=== PATIENT | female | born 1965 | race Caucasian/White ===

== ENCOUNTER 2023-06-16 17:41 | Inpatient (IN) | payer MEDICARE ==
[2023-06-16 17:58] LABS: Glucose,Whole Blood 296 mg/dL (70-110)
[2023-06-16] MEDS ORDERED: ASPIRIN 81 MG PO STA (18:30)
[2023-06-16] MEDS ORDERED: LABETALOL 5 MG/ML VIAL MDV IVP STA (18:31)
--- NOTE | 2023-06-16 18:35 | ED ---
General Adult HPI - General Chief complaint: Chest Pain Stated complaint: chest pain Time Seen by Provider: 06/16/23 17:58 Source: patient, family, EMS, RN notes reviewed, old records reviewed Mode of arrival: EMS Limitations: no limitations - History of Present Illness Initial comments: Patient is a pleasant 58-year-old female presenting to the emergency department with concerns for chest discomfort. Patient was transferred from [facility]. Patient has been a is comfortable last 2 days. Discomfort is minimal at this time rated 1/10. Patient has minimal associated dyspnea. No fevers. Patient does feel like she may be a little bit dehydrated. Chart reviewed from [facility]. Patient was seen there and transferred secondary to hypertension and chest pain. Patient had reported negative CT angiogram. - Related Data Allergies Allergy/AdvReac Type Severity Reaction Status Date / Time metformin Allergy Unknown Verified 06/16/23 18:02 Sulfa (Sulfonamide Allergy Unknown Verified 06/16/23 18:02 Antibiotics) Review of Systems ROS Statement: Those systems with pertinent positive or pertinent negative responses have been documented in the HPI. ROS Other: All systems not noted in ROS Statement are negative. Constitutional: Denies: fever Eyes: Denies: eye pain ENT: Denies: ear pain Respiratory: Reports: as per HPI, dyspnea. Denies: cough Cardiovascular: Reports: as per HPI, chest pain Endocrine: Denies: fatigue Gastrointestinal: Denies: abdominal pain Genitourinary: Denies: urgency Musculoskeletal: Denies: back pain Past Medical History Past Medical History: Coronary Artery Disease (CAD), Diabetes Mellitus, Hypertension, Myocardial Infarction ([place]) Additional Past Medical History / Comment(s): PAD Additional Past Surgical History / Comment(s): Double bypass, carotid endar terectomy, Past Psychological History: Anxiety, Depression Smoking Status: Current every day smoker Past Alcohol Use History: None Reported Past Drug Use History: Marijuana General Exam Limitations: no limitations General appearance: alert, in no apparent distress Head exam: Present: normocephalic Eye exam: Present: normal appearance Neck exam: Present: normal inspection Respiratory exam: Present: normal lung sounds bilaterally. Absent: chest wall tenderness Cardiovascular Exam: Present: regular rate, normal rhythm Expanded Peripheral pulses: 2+: Radial (R), Radial (L), Dorsalis Pedis (R), Dorsalis Pedis (L) GI/Abdominal exam: Present: soft. Absent: tenderness Extremities exam: Present: normal inspection. Absent: pedal edema, calf tenderness Neurological exam: Present: alert Psychiatric exam: Present: normal affect, normal mood Skin exam: Present: normal color Course Vital Signs 06/16/23 06/16/23 06/16/23 17:48 18:15 18:45 Temperature 99.0 F Pulse Rate 103 H 101 H 108 H Respiratory 20 23 19 Rate Blood Pressure 209/84 184/115 188/96 O2 Sat by Pulse 94 L 97 95 Oximetry EKG Findings - EKG Results: EKG: interpreted by ERMD (Left axis. LVH. Nonspecific ST-T), sinus rhythm EKG shows: tachycardia Medical Decision Making - Medical Decision Making Was pt. sent in by a medical professional or institution (, PA, [employer]ER, urgent care, hospital, or group home...) When possible be specific @ -Patient was sent from [facility] Did you speak to anyone other than the patient for history (EMS, parent, family, police, friend...)? What history was obtained from this source @ -I did speak with transferring physician from [facility] Did you review nursing and triage notes (agree or disagree)? Why? @ -I reviewed and agree with nursing and triage notes Were old charts reviewed (outside hosp., previous admission, EMS record, old EKG, old radiological studies, urgent care reports/EKG's, group home records)? Report findings @ -Chart from [facility] reviewed Differential Diagnosis (chest pain, altered mental status, abdominal pain women, abdominal pain men, vaginal bleeding, weakness, fever, dyspnea, syncope, headache, dizziness, GI bleed, back pain, seizure, CVA, palpatations, mental health, musculoskeletal)? @ -Differential Chest Pain: Stable Angina, Unstable Angina, STEMI, NSTEMI Aortic Dissection, Pneumothorax, Musculoskeletal, Esophageal Spasm GERD, Cholecystitis, Pancreatitis, Zoster, this is not meant to be an all-inclusive list. EKG interpreted by me (3pts min.). @ -As above X-rays interpreted by me (1pt min.). @ -Chest x-ray shows no acute process CT interpreted by me (1pt min.). @ -None done U/S interpreted by me (1pt. min.). @ -None done What testing was considered but not performed or refused? (CT, X-rays, U/S, labs)? Why? @ -None What meds were considered but not given or refused? Why? @ -None Did you discuss the management of the patient with other professionals (professionals i.e. , PA, [employer]EDER, lab, RT, psych nurse, adoption social worker, bridge contractor, teacher, deportation officer, case management director)? Give summary @ -Case was discussed with practitioner Germania Olivas, who will admit covering hospital Was smoking cessation discussed for >3mins.? @ -No Was critical care preformed (if so, how long)? @ -No Were there social determinants of health that impacted care today? How? (Homelessness, low income, unemployed, alcoholism, drug addiction, transportation, low edu. Level, literacy, decrease access to med. care, fci, rehab)? @ -No Was there de-escalation of care discussed even if they declined (Discuss DNR or withdrawal of care, Hospice)? DNR status @ -No What co-morbidities impacted this encounter? (DM, HTN, Smoking, COPD, CAD, Cancer, CVA, ARF, Chemo, Hep., AIDS, mental health diagnosis, sleep apnea, morbid obesity)? @ -None Was patient admitted / discharged? Hospital course, mention meds given and route, prescriptions, significant lab abnormalities, going to OR and other pertinent info. @ -Patient has minimal symptoms at this time. Patient will be admitted with cardiac consult. Admission orders written. Undiagnosed new problem with uncertain prognosis? @ -No Drug Therapy requiring intensive monitoring for toxicity (Heparin, Nitro, Insulin, Cardizem)? @ -No Were any procedures done? @ -No Diagnosis/symptom? @ -Chest pain, hypertension Acute, or Chronic, or Acute on Chronic? @ -Acute, acute Uncomplicated (without systemic symptoms) or Complicated (systemic symptoms)? @ -default Side effects of treatment? @ -No Exacerbation, Progression, or Severe Exacerbation? @ -No Poses a threat to life or bodily function? How? (Chest pain, [place], [place], pneumonia, PE, COPD, DKA, ARF, appy, cholecystitis, CVA, Diverticulitis, Homicidal, Suicidal, threat to staff... and all critical care pts) @ -No - Lab Data Result diagrams: 06/16/23 18:30 Lab Results 06/16/23 06/16/2324 Range/Units 17:56 18:30 18:30 WBC 24.4 H (3.8-10.6) k/uL RBC 5.46 H (3.80-5.40) m/uL Hgb 15.7 (11.4-16.0) gm/dL Hct 47.5 H (34.0-46.0) % MCV 87.1 (80.0-100.0) fL MCH 28.8 (25.0-35.0) pg MCHC 33.1 (31.0-37.0) g/dL RDW 14.8 (11.5-15.5) % Plt Count 273 (150-450) k/uL MPV 8.4 Neutrophils % 83 % Lymphocytes % 10 % Monocytes % 5 % Eosinophils % 0 % Basophils % 0 % Neutrophils # 20.2 H (1.3-7.7) k/uL Lymphocytes # 2.5 (1.0-4.8) k/uL Monocytes # 1.2 H (0-1.0) k/uL Eosinophils # 0.0 (0-0.7) k/uL Basophils # 0.0 (0-0.2) k/uL PT 12.0 (10.0-12.5) sec INR 1.1 (<1.2) APTT 68.3 H (22.0-30.0) sec POC Glucose (mg/dL) 296 H (70-110) mg/dL POC Glu [employer] ID Jeannette Mena Disposition Clinical Impression: Chest pain Disposition: ADMITTED IP TO THIS HOSP Is patient prescribed a controlled substance at d/c from ED?: No Time of Disposition: 18:51
[2023-06-16] MEDS: NITROGLYCERIN OINT 1 INCH/GM PACKET TOPICAL STA ×2 (18:41→18:46)
[2023-06-16] MEDS ORDERED: NALOXONE 0.4 MG/ML 1 ML VIAL IV PRN (18:51)
[2023-06-16] MEDS ORDERED: NITROGLYCERIN SL TABS 0.4 MG TAB SUBLINGUAL PRN (18:53)
[2023-06-16 18:57] LABS: Basophils % (A) 0 %; Eosinophils % (A) 0 %; HCT 47.5 % (34.0-46.0); HGB 15.7 gm/dL (11.4-16.0); Lymphocytes # (A) 2.5 k/uL (1.0-4.8); Lymphocytes % (A) 10 %; MCH 28.8 pg (25.0-35.0); MCHC 33.1 g/dL (31.0-37.0); MCV 87.1 fL (80.0-100.0); Mean Platelet Volume 8.4; Monocytes # (A) 1.2 k/uL (0-1.0); Monocytes % (A) 5 %; Neutrophils # (A) 20.2 k/uL (1.3-7.7); Neutrophils % (A) 83 %; Platelet Count 273 k/uL (150-450); RBC 5.46 m/uL (3.80-5.40); RDW 14.8 % (11.5-15.5); WBC 24.4 k/uL (3.8-10.6)
--- NOTE | 2023-06-16 19:11 | XR ---
EXAMINATION TYPE: XR chest 2V DATE OF EXAM: 06/16/2023 COMPARISON: None INDICATION: Chest pain TECHNIQUE: Frontal and lateral views of the chest are obtained. FINDINGS: The heart size is normal. Sternotomy wires from prior surgery are evident. The pulmonary vasculature is normal. The lungs are clear. IMPRESSION: 1. No acute pulmonary process.
[2023-06-16 19:16] LABS: INR 1.1 (<1.2); Partial Thromboplastin Time 68.3 sec (22.0-30.0)
[2023-06-16] MEDS ORDERED: HEPARIN SODIUM 1,000 UN/ML (10ML VL) IV PRN (19:33)
[2023-06-16] MEDS: SODIUM CHLORIDE 0.9% 1,000 ML IV SCH (19:33)
[2023-06-16] MEDS: HEPARIN SOD,PORK IN 0.45% NACL 25,000 UNIT in 0.45% NACL 1 250ML.BAG IV SCH (19:44)
[2023-06-16 20:44] LABS: ALT 36 U/L (4-34); AST 71 U/L (14-36); African American GFR (CKD) >90 (>60 ml/min/1.73 sqM); Albumin 4.1 g/dL (3.5-5.0); Alkaline Phosphatase 143 U/L (38-126); Anion Gap 16 mmol/L; Blood Urea Nitrogen 24 mg/dL (7-17); Calcium 9.5 mg/dL (8.4-10.2); Carbon Dioxide 23 mmol/L (22-30); Chloride 99 mmol/L (98-107); Glucose 300 mg/dL (74-99); Magnesium 2.1 mg/dL (1.6-2.3); Non-African American GFR(CKD) >90 (>60 ml/min/1.73 sqM); Potassium 3.9 mmol/L (3.5-5.1); Sodium 138 mmol/L (137-145); Total Bilirubin 0.5 mg/dL (0.2-1.3); Total Protein 7.1 g/dL (6.3-8.2)
[2023-06-16] MEDS: METOPROLOL TARTRATE 50 MG TAB PO SCH (20:50)
[2023-06-16] MEDS ORDERED: tiZANidine 4 MG TAB PO PRN (20:53)
[2023-06-16] MEDS ORDERED: HYDROcodone/APAP 10-325MG 1 EACH TAB PO PRN (20:53)
[2023-06-16 21:09] LABS: Appearance,Urine Clear (Clear); Bilirubin,Urine Negative (Negative); Blood,Urine Large (Negative); Color,Urine Light Yellow; Glucose,Urine (UA) 1+ (Negative); Ketones,Urine 1+ (Negative); Leukocyte Esterase,Urine Negative (Negative); Mucus,Urine Few /hpf; Nitrite,Urine Negative (Negative); Protein,Urine 4+ (Negative); RBC,Urine 4 /hpf (0-5); Squamous Epithelial Cell,Urine 1 /hpf (0-4); Urobilinogen,Urine <2.0 mg/dL (<2.0); WBC,Urine 8 /hpf (0-5)
[2023-06-16 21:15] LABS: Specific Gravity,Urine >1.050 (1.001-1.035)
[2023-06-16] MEDS: cloNIDine HCL 0.2 MG TAB PO SCH (21:29)
[2023-06-16] MEDS: glipiZIDE 10 MG TAB PO SCH (21:29)
[2023-06-16] MEDS: PREGABALIN 75 MG CAP PO SCH (21:29)
[2023-06-16] MEDS: traZODone HCL 100 MG TAB PO SCH (21:29)
[2023-06-16] MEDS: PRAVASTATIN SODIUM 40 MG TAB PO SCH (21:29)
[2023-06-16 22:52] LABS: Glucose,Whole Blood 313 mg/dL (70-110)
[2023-06-16] MEDS: QUEtiapine 100 MG TAB PO SCH (22:52)
[2023-06-16] MEDS: INSULIN DETEMIR (LEVEMIR) 100 UNIT/ML SYR SQ SCH (22:52)
[2023-06-16] MEDS: NITROGLYCERIN OINT 1 INCH/GM PACKET TOPICAL SCH (23:48)
[2023-06-16] MEDS: ACETAMINOPHEN TAB 325 MG TAB PO PRN (23:53)
[2023-06-17] MEDS ORDERED: METOCLOPRAMIDE 5 MG/ML 2 ML VIAL IVP STA (02:43)
[2023-06-17] MEDS: NITROGLYCERIN OINT 1 INCH/GM PACKET TOPICAL SCH ×5 (06:44→23:32)
[2023-06-17 06:49] LABS: Glucose,Whole Blood 109 mg/dL (70-110)
[2023-06-17] MEDS: INSULIN ASPART (NovoLOG) 100 UNIT/ML VIAL SQ SCH ×4 (06:49→20:37)
[2023-06-17] MEDS ORDERED: PANTOPRAZOLE 40 MG TABLET PO SCH (07:30)
[2023-06-17 08:26] LABS: Basophils % (A) 0 %; Eosinophils # (A) 0.1 k/uL (0-0.7); Eosinophils % (A) 1 %; HCT 43.7 % (34.0-46.0); HGB 14.7 gm/dL (11.4-16.0); Lymphocytes # (A) 3.8 k/uL (1.0-4.8); Lymphocytes % (A) 24 %; MCH 29.8 pg (25.0-35.0); MCHC 33.6 g/dL (31.0-37.0); MCV 88.7 fL (80.0-100.0); Mean Platelet Volume 7.9; Monocytes # (A) 0.8 k/uL (0-1.0); Monocytes % (A) 5 %; Neutrophils # (A) 10.5 k/uL (1.3-7.7); Neutrophils % (A) 68 %; Platelet Count 196 k/uL (150-450); RBC 4.92 m/uL (3.80-5.40); RDW 14.7 % (11.5-15.5); WBC 15.4 k/uL (3.8-10.6)
[2023-06-17] MEDS: PREGABALIN 75 MG CAP PO SCH ×2 (08:59→20:35)
[2023-06-17] MEDS: allopurinoL 100 MG TAB PO SCH (08:59)
[2023-06-17] MEDS: amLODIPine 10 MG TAB PO SCH (08:59)
[2023-06-17] MEDS: METOPROLOL TARTRATE 50 MG TAB PO SCH ×2 (08:59→23:48)
[2023-06-17] MEDS: ASPIRIN 81 MG PO SCH (08:59)
[2023-06-17] MEDS: cloNIDine HCL 0.2 MG TAB PO SCH ×2 (08:59→20:35)
[2023-06-17] MEDS: EZETIMIBE 10 MG TAB PO SCH (08:59)
[2023-06-17] MEDS: LINAGLIPTIN 5 MG TABLET PO SCH (08:59)
[2023-06-17] MEDS: glipiZIDE 10 MG TAB PO SCH ×2 (08:59→20:36)
[2023-06-17] MEDS: CLOPIDOGREL 75 MG TAB PO SCH (08:59)
[2023-06-17] MEDS: DOCUSATE 100 MG CAP PO SCH (08:59)
[2023-06-17] MEDS ORDERED: ASPIRIN 325 MG TAB PO SCH (09:00)
[2023-06-17] MEDS: LORATADINE 10 MG TAB PO SCH (09:00)
[2023-06-17] MEDS: INSULIN DETEMIR (LEVEMIR) 100 UNIT/ML SYR SQ SCH ×2 (09:00→20:36)
[2023-06-17] MEDS: SODIUM CHLORIDE 0.9% 1,000 ML IV SCH ×2 (09:00→16:52)
[2023-06-17 09:03] LABS: INR 1.1 (<1.2); Partial Thromboplastin Time 89.4 sec (22.0-30.0)
--- NOTE | 2023-06-17 09:05 | P.HPIM ---
History of Present Illness This is a pleasant 58 years old female with multiple medical problems. Presents because of chest pain. Patient was transferred from [facility] for chest pain or dyspnea. Patient also was not taking her medication because she ran out of them. This Morning patient says she came because of chest pain for the last 2-3 days, central nonradiating o'clock sharp with no precipitating or relieving factors. Associated with some cough and white phlegm for the last 2 days. No dyspnea. She vomited 2 days ago but now stopped. No diarrhea no abdominal pain. No urinary complaints, she had some dysuria 2 days ago but none today. No suprapubic tenderness. She just has some dizziness but no headache weakness or numbness. She smokes about 1 pack for 2-3 days and she was counseled to quit and she agrees but she declines nicotine patch. No alcohol or illicit drugs Her PCP is Dr. Robin and Patient takes aspirin and Plavix at home for her legs. Her doctor is Dr. Bola Nick from outside system but she does not know his speciality Patient blood pressure is improved this morning 120/81, was elevated 209/84 on admission. Heart rate was elevated 108, currently 92. Rest of vital signs stable. She has leukocytosis 24,000, down to 15,000, hemoglobin 15.7, platelet count 273. Glucose elevated more than 300. Liver enzymes mildly elevated Records from [facility] reviewed showing urine analysis with protein and blood in urine. D-dimer is elevated 1.7. CTA is negative for pulmonary embolism, no aortic dissection or aneurysm Left thyroid nodule 1.6 cm Right upper lobe cavity 8 mm with few adjacent small cavities. Right adrenal mass 2.8 cm, contents found, no need for follow-up radiologist Chest x-ray showing left lower lobe atelectasis Urine drug screen is negative except for the thc CRP is -0.25 Influenza A and type B, RSV, SARS (coronavirus) are and detected Lactic acid is normal 1.6 Creatinine 1.1 BNP is 212. Review of Systems Review of systems CONSTITUTIONAL: No fever, no malaise, no fatigue. HEENT: No recent visual problems or hearing problems. Denied any sore throat. CARDIOVASCULAR: No orthopnea, PND, no palpitations, no syncope. PULMONARY: No shortness of breath, no cough, no hemoptysis. GASTROINTESTINAL: No diarrhea, no nausea, no vomiting, no abdominal pain. Normoactive bowel sounds. NEUROLOGICAL: No headaches, no weakness, no numbness. HEMATOLOGICAL: Denies any bleeding or petechiae. GENITOURINARY: Denies any burning micturition, frequency, or urgency. MUSCULOSKELETAL/RHEUMATOLOGICAL: Denies any joint pain, swelling, or any muscle pain. ENDOCRINE: Denies any polyuria or polydipsia. Past Medical History Past Medical History: Coronary Artery Disease (CAD), Diabetes Mellitus, Hypertension, Myocardial Infarction ([place]) Additional Past Medical History / Comment(s): PAD Additional Past Surgical History / Comment(s): Double bypass, carotid endarterectomy, Past Psychological History: Anxiety, Depression Smoking Status: Current every day smoker Past Alcohol Use History: None Reported Past Drug Use History: Marijuana Medications and Allergies Home Medications Medication Instructions Recorded Confirmed Type Clopidogrel [Plavix] 75 mg PO DAILY 06/16/23 06/16/23 History Docusate [Colace] 100 mg PO DAILY 06/16/23 06/16/23 History Dulaglutide [Trulicity] 3 mg SQ HAWKINS 06/16/23 06/16/23 History Ezetimibe [Zetia] 10 mg PO DAILY 06/16/23 06/16/23 History HYDROcodone/APAP 10-325MG [[place] 1 tab PO Q6H PRN 06/16/23 06/16/23 History 10-325] Insulin Glargine [Lantus Vial] 55 unit SQ BID 06/16/23 06/16/23 History Loratadine [Claritin] 10 mg PO DAILY 06/16/23 06/16/23 History Metoprolol Tartrate [Lopressor] 50 mg PO BID 06/16/23 06/16/23 History Omeprazole 40 mg PO AC-BRKFST 06/16/23 06/16/23 History Pravastatin Sodium [Pravachol] 40 mg PO HS 06/16/23 06/16/23 History Pregabalin [Lyrica] 75 mg PO BID 06/16/23 06/16/23 History QUEtiapine FUMARATE [SEROquel] 300 mg PO HS 06/16/23 06/16/23 History Rivaroxaban [Xarelto] 2.5 mg PO BID 06/16/23 06/16/23 History Vortioxetine Hydrobromide 20 mg PO DAILY 06/16/23 06/16/23 History [Trintellix] allopurinoL 100 mg PO DAILY 06/16/23 06/16/23 History amLODIPine [Norvasc] 10 mg PO DAILY 06/16/23 06/16/23 History cloNIDine HCL [Catapres] 0.2 mg PO BID 06/16/23 06/16/23 History clonazePAM [KlonoPIN] 0.5 mg PO TID PRN 06/16/23 06/16/23 History glipiZIDE [Glucotrol] 10 mg PO BID 06/16/23 06/16/23 History hydroCHLOROthiazide 12.5 mg PO DAILY 06/16/23 06/16/23 History sitaGLIPtin [Januvia] 100 mg PO DAILY 06/16/23 06/16/23 History tiZANidine HCL [Zanaflex] 2 mg PO TID PRN 06/16/23 06/16/23 History traZODone HCL 150 mg PO HS 06/16/23 06/16/23 History Allergies Allergy/AdvReac Type Severity Reaction Status Date / Time metformin Allergy Unknown Verified 06/16/23 19:23 Sulfa (Sulfonamide Allergy Unknown Verified 06/16/23 19:23 Antibiotics) Physical Exam Vitals: Vital Signs Temp Pulse Pulse Resp BP BP Pulse Ox 06/17/23 02:00 81 16 120/81 94 L 06/16/23 21:26 98.6 F 81 20 196/112 93 L 06/16/23 20:45 92 16 204/96 95 06/16/23 20:00 75 18 06/16/23 19:31 85 16 201/106 98 06/16/23 18:45 108 H 19 188/96 95 06/16/23 18:15 101 H 23 184/115 97 06/16/23 17:48 99.0 F 103 H 20 209/84 94 L Intake and Output 06/16/23 06/17/23 06/17/23 22:59 06:59 14:59 Intake Total 540 63.781 Balance 540 63.781 Intake: Intake, IV Titration 63.781 Amount Heparin Sod,Pork in 0.45% 63.781 NaCl 25,000 unit In 0.45 % NaCl 1 250ml.bag @ 12 UNITS/KG/HR 9.449 mls/hr IV .Q24H [facility] Rx#: [id number] Oral 540 Other: Voiding Method Toilet Toilet # Voids 1 Weight 78.744 kg GENERAL: The patient is alert and oriented x3, not in any acute distress. Well developed, well nourished. HEENT: Pupils are round and equally reacting to light. EOMI. No scleral icterus. No conjunctival pallor. Normocephalic, atraumatic. No pharyngeal erythema. No thyromegaly. CARDIOVASCULAR: S1 and S2 present. No murmurs, rubs, or gallops. PULMONARY: Chest is clear to auscultation, no wheezing , no crackles. ABDOMEN: Soft, nontender, nondistended, normoactive bowel sounds. No palpable organomegaly. MUSCULOSKELETAL: No joint swelling or deformity. EXTREMITIES: No cyanosis, clubbing, or pedal edema. NEUROLOGICAL: Gross neurological examination did not reveal any focal deficits. SKIN: No rashes. no petechiae. Results CBC & Chem 7: 06/17/23 07:39 06/16/23 18:30 Labs: Abnormal Lab Results - Last 24 Hours (Table) 06/16/23 06/16/23 06/16/23 Range/Units 17:56 18:30 18:30 WBC 24.4 H (3.8-10.6) k/uL RBC 5.46 H (3.80-5.40) m/uL Hct 47.5 H (34.0-46.0) % Neutrophils # 20.2 H (1.3-7.7) k/uL Monocytes # 1.2 H (0-1.0) k/uL APTT 68.3 H (22.0-30.0) sec BUN (7-17) mg/dL Glucose (74-99) mg/dL POC Glucose (mg/dL) 296 H (70-110) mg/dL AST (14-36) U/L ALT (4-34) U/L Alkaline Phosphatase (38-126) U/L Troponin I (0.000-0.034) ng/mL Ur Specific [place] (1.001-1.035) Urine Protein (Negative) Urine Glucose (UA) (Negative) Urine Ketones (Negative) Urine Blood (Negative) Urine WBC (0-5) /hpf Urine Mucus (None) /hpf 06/16/23 06/16/23 06/16/23 Range/Units 18:30 18:30 19:33 WBC (3.8-10.6) k/uL RBC (3.80-5.40) m/uL Hct (34.0-46.0) % Neutrophils # (1.3-7.7) k/uL Monocytes # (0-1.0) k/uL APTT (22.0-30.0) sec BUN 24 H (7-17) mg/dL Glucose 300 H (74-99) mg/dL POC Glucose (mg/dL) (70-110) mg/dL AST 71 H (14-36) U/L ALT 36 H (4-34) U/L Alkaline Phosphatase 143 H (38-126) U/L Troponin I 0.097 H* (0.000-0.034) ng/mL Ur Specific [place] >1.050 H (1.001-1.035) Urine Protein 4+ H (Negative) Urine Glucose (UA) 1+ H (Negative) Urine Ketones 1+ H (Negative) Urine Blood Large H (Negative) Urine WBC 8 H (0-5) /hpf Urine Mucus Few H (None) /hpf 06/16/23 06/16/23 06/17/23 Range/Units 21:02 22:51 01:18 WBC (3.8-10.6) k/uL RBC (3.80-5.40) m/uL Hct (34.0-46.0) % Neutrophils # (1.3-7.7) k/uL Monocytes # (0-1.0) k/uL APTT (22.0-30.0) sec BUN (7-17) mg/dL Glucose (74-99) mg/dL POC Glucose (mg/dL) 313 H (70-110) mg/dL AST (14-36) U/L ALT (4-34) U/L Alkaline Phosphatase (38-126) U/L Troponin I 0.094 H* 0.088 H* (0.000-0.034) ng/mL Ur Specific [place] (1.001-1.035) Urine Protein (Negative) Urine Glucose (UA) (Negative) Urine Ketones (Negative) Urine Blood (Negative) Urine WBC (0-5) /hpf Urine Mucus (None) /hpf 06/17/23 06/17/23 Range/Units 01:18 07:39 WBC 15.4 H (3.8-10.6) k/uL RBC (3.80-5.40) m/uL Hct (34.0-46.0) % Neutrophils # 10.5 H (1.3-7.7) k/uL Monocytes # (0-1.0) k/uL APTT 33.4 H (22.0-30.0) sec BUN (7-17) mg/dL Glucose (74-99) mg/dL POC Glucose (mg/dL) (70-110) mg/dL AST (14-36) U/L ALT (4-34) U/L Alkaline Phosphatase (38-126) U/L Troponin I (0.000-0.034) ng/mL Ur Specific [place] (1.001-1.035) Urine Protein (Negative) Urine Glucose (UA) (Negative) Urine Ketones (Negative) Urine Blood (Negative) Urine WBC (0-5) /hpf Urine Mucus (None) /hpf Assessment and Plan Assessment: Chest pain, rule out cardiac causes Hypertension, controlled on admission Nonadherence to medication Nicotine dependence Obesity with BMI of 29.8 Diabetes mellitus, with hyperglycemia Hyperlipidemia History of depression, currently not active issue and she denies suicidal ideation or homicidal ideation Left thyroid nodule 1.6 cm, follow-up with pheresis specialist as an outpatient Dr. Martinez in 1-2 weeks after discharge, risks including but not limited to cancer explained, patient & son agree 8 mm right upper lung cavity,Common follow-up with torsion spring coiling machine setter as an outpatient, risks including but not limited to cancer explained, patient & son mr.Gerard gamboa Plan: Continue with heparin drip Continue with aspirin and Plavix Cardiology consult Continue gentle hydration Follow-up echocardiogram Get blood culture with WBC monitoring. Check procalcitonin Labs and medication were reviewed.. Continue same treatment. Continue with symptomatic treatment. Resume home medication. Monitor lytes and vitals. DVT and GI prophylaxis. Further recommendations depends on the clinical course of the patient DVT prophylaxis: heparin GI Prophylaxis: Ppi Prognosis is guarded
[2023-06-17] MEDS: VORTIOXETINE HYDROBROMIDE 20 MG TABLET PO SCH (09:13)
[2023-06-17] MEDS: hydroCHLOROthiazide 12.5 MG CAP PO SCH (09:30)
[2023-06-17 10:04] LABS: ALT 32 U/L (4-34); AST 68 U/L (14-36); African American GFR (CKD) >90 (>60 ml/min/1.73 sqM); Albumin 3.6 g/dL (3.5-5.0); Alkaline Phosphatase 114 U/L (38-126); Anion Gap 10 mmol/L; Bilirubin, Delta 0.3 mg/dL (0.0-0.2); Bilirubin,Unconjugated 0.2 mg/dL (0.0-1.1); Blood Urea Nitrogen 23 mg/dL (7-17); Calcium 9.2 mg/dL (8.4-10.2); Carbon Dioxide 29 mmol/L (22-30); Chloride 100 mmol/L (98-107); Glucose 106 mg/dL (74-99); Non-African American GFR(CKD) >90 (>60 ml/min/1.73 sqM); Sodium 139 mmol/L (137-145); Total Bilirubin 0.5 mg/dL (0.2-1.3); Total Protein 6.3 g/dL (6.3-8.2)
--- NOTE | 2023-06-17 11:05 | P.CRDCN ---
History of Present Illness History of present illness: HISTORY OF PRESENT ILLNESS: This is a 58-year-old female with a past medical history significant for coronary artery disease with previous 2 vessel CABG in 2017 performed in [place], hypertension, hyperlipidemia, diabetes, nicotine dependence, and marijuana use. Patient states that she recently moved to [place] in June and has not established yet with a chemical maker. We have been asked to see the patient in consultation for elevated troponins. Patient examined at the bedside in the emergency room. The patient states on Monday she started having iss ues with nausea and vomiting that progressed for the past few days. She states yesterday she began to have pain in the middle of her chest that felt like a pressure type sensation. She denied any radiation of the pain. Denied any shortness of breath. The patient states she did not take anything for the pain and it went away on its own. She denies chest pain or pressure at the time of examination. The patient's blood pressure was significant elevated upon arrival to the hospital with a systolic greater than 200. The patient states she ran out of her medications and has not been taking them for at least a week. Patient's blood pressure is improved this morning with a reading of 135/88. Patient was found to have mildly elevated troponins and she was started on IV heparin. * EKG reveals sinus mechanism with nonspecific ST-T wave changes. Evidence of LVH. No previous EKG available for comparison. * Chest xray negative for acute process * Laboratory data: WBC 0.097. 0.094. 0.088. WBC 24.4. Repeat 15.4. REVIEW OF SYSTEMS: At the time of my exam: CONSTITUTIONAL: Denies fever or chills. HEENT: Denies blurred vision, vision changes, or eye pain. Denies hemoptysis CARDIOVASCULAR: Denies chest pain. Denies orthopnea. Denies PND. Denies palpitat ions RESPIRATORY: Denies shortness of breath. GASTROINTESTINAL: Denies abdominal pain. Denies nausea or vomiting. HEMATOLOGIC: Denies bleeding disorders. GENITOURINARY: Denies any blood in urine. SKIN: Denies pruitis. Denies rash. PHYSICAL EXAM: VITAL SIGNS: Reviewed. GENERAL: Well-developed in no acute distress. HEENT: Head is normocephalic. Pupils are equal, round. Sclerae anicteric. Mucous membranes of the mouth are moist. Neck supple. No JVD or thyromegaly LUNGS: Respirations even and unlabored. Lungs essentially clear to auscultation bilaterally. HEART: Regular rate and rhythm. S1 and S2 heard. ABDOMEN: Soft. Nondistended. Nontender. EXTREMITIES: Normal range of motion. No clubbing or cyanosis. Peripheral pulses intact. No lower extremity edema NEUROLOGIC: Awake and alert. Oriented x 3. ASSESSMENT: Nausea and vomiting Leukocytosis Hypertensive emergency, improved Chest pain with elevated troponins, flat, may be secondary to uncontrolled hypertension, cannot rule out underlying NSTEMI Coronary artery disease with previous 2 vessel CABG, 2017 History of hypertension History of hyperlipidemia Diabetes Nicotine dependence Marijuana use Medication noncompliance, patient states she ran out of her medications PLAN: Obtain 2-D echo to assess cardiac structure and function Continue IV heparin Resume home cardiac medications Continue to monitor blood pressure Patient will require cardiac catheterization to be completed by Dr. Martin. Timing to be determined. Monday versus Monday. Further recommendations pending patient's course Nurse practitioner note has been reviewed by physician. Signing provider agrees with the documented findings, assessment, and plan of care. Past Medical History Past Medical History: Coronary Artery Disease (CAD), Diabetes Mellitus, Hypertension, Myocardial Infarction ([place]) Additional Past Medical History / Comment(s): PAD Additional Past Surgical History / Comment(s): Double bypass, carotid endarterectomy, Past Psychological History: Anxiety, Depression Smoking Status: Current every day smoker Past Alcohol Use History: None Reported Past Drug Use History: Marijuana Medications and Allergies Home Medications Medication Instructions Recorded Confirmed Type Clopidogrel [Plavix] 75 mg PO DAILY 06/16/23 06/16/23 History Docusate [Colace] 100 mg PO DAILY 06/16/23 06/16/23 History Dulaglutide [Trulicity] 3 mg SQ HAWKINS 06/16/23 06/16/23 History Ezetimibe [Zetia] 10 mg PO DAILY 06/16/23 06/16/23 History HYDROcodone/APAP 10-325MG [[place] 1 tab PO Q6H PRN 06/16/23 06/16/23 History 10-325] Insulin Glargine [Lantus Vial] 55 unit SQ BID 06/16/23 06/16/23 History Loratadine [Claritin] 10 mg PO DAILY 06/16/23 06/16/23 History Metoprolol Tartrate [Lopressor] 50 mg PO BID 06/16/23 06/16/23 History Omeprazole 40 mg PO AC-BRKFST 06/16/23 06/16/23 History Pravastatin Sodium [Pravachol] 40 mg PO HS 06/16/23 06/16/23 History Pregabalin [Lyrica] 75 mg PO BID 06/16/23 06/16/23 History QUEtiapine FUMARATE [SEROquel] 300 mg PO HS 06/16/23 06/16/23 History Rivaroxaban [Xarelto] 2.5 mg PO BID 06/16/23 06/16/23 History Vortioxetine Hydrobromide 20 mg PO DAILY 06/16/23 06/16/23 History [Trintellix] allopurinoL 100 mg PO DAILY 06/16/23 06/16/23 History amLODIPine [Norvasc] 10 mg PO DAILY 06/16/23 06/16/23 History cloNIDine HCL [Catapres] 0.2 mg PO BID 06/16/23 06/16/23 History clonazePAM [KlonoPIN] 0.5 mg PO TID PRN 06/16/23 06/16/23 History glipiZIDE [Glucotrol] 10 mg PO BID 06/16/23 06/16/23 History hydroCHLOROthiazide 12.5 mg PO DAILY 06/16/23 06/16/23 History sitaGLIPtin [Januvia] 100 mg PO DAILY 06/16/23 06/16/23 History tiZANidine HCL [Zanaflex] 2 mg PO TID PRN 06/16/23 06/16/23 History traZODone HCL 150 mg PO HS 06/16/23 06/16/23 History Allergies Allergy/AdvReac Type Severity Reaction Status Date / Time metformin Allergy Unknown Verified 06/16/23 19:23 Sulfa (Sulfonamide Allergy Unknown Verified 06/16/23 19:23 Antibiotics) Physical Exam Vitals: Vital Signs Temp Pulse Pulse Resp BP BP Pulse Ox 06/17/23 02:00 81 16 120/81 94 L 06/16/23 21:26 98.6 F 81 20 196/112 93 L 06/16/23 20:45 92 16 204/96 95 06/16/23 20:00 75 18 06/16/23 19:31 85 16 201/106 98 01/12/24 18:45 108 H 19 188/96 95 06/16/23 18:15 101 H 23 184/115 97 06/16/23 17:48 99.0 F 103 H 20 209/84 94 L Intake and Output 06/16/23 06/17/23 06/17/23 22:59 06:59 14:59 Intake Total 540 63.781 Balance 540 63.781 Intake: Intake, IV Titration 63.781 Amount Heparin Sod,Pork in 0.45% 63.781 NaCl 25,000 unit In 0.45 % NaCl 1 250ml.bag @ 12 UNITS/KG/HR 9.449 mls/hr IV .Q24H [facility] Rx#: [id number] Oral 540 Other: Voiding Method Toilet Toilet # Voids 1 Weight 78.744 kg Results 06/17/23 07:39 06/17/23 07:39 Cardiac Enzymes 06/16/23 06/16/23 06/16/23 Range/Units 18:30 18:30 21:02 AST 71 H (14-36) U/L Troponin I 0.097 H* 0.094 H* (0.000-0.034) ng/mL 06/17/23 Range/Units 01:18 AST (14-36) U/L Troponin I 0.088 H* (0.000-0.034) ng/mL Coagulation 06/16/23 06/17/23 Range/Units 18:30 01:18 PT 12.0 (10.0-12.5) sec APTT 68.3 H 33.4 H (22.0-30.0) sec CBC 06/16/23 Range/Units 18:30 WBC 24.4 H (3.8-10.6) k/uL RBC 5.46 H (3.80-5.40) m/uL Hgb 15.7 (11.4-16.0) gm/dL Hct 47.5 H (34.0-46.0) % Plt Count 273 (150-450) k/uL Comprehensive Metabolic Panel 06/16/23 Range/Units 18:30 Sodium 138 (137-145) mmol/L Potassium 3.9 (3.5-5.1) mmol/L Chloride 99 (98-107) mmol/L Carbon Dioxide 23 (22-30) mmol/L BUN 24 H (7-17) mg/dL Creatinine 0.56 (0.52-1.04) mg/dL Glucose 300 H (74-99) mg/dL Calcium 9.5 (8.4-10.2) mg/dL AST 71 H (14-36) U/L ALT 36 H (4-34) U/L Alkaline Phosphatase 143 H (38-126) U/L Total Protein 7.1 (6.3-8.2) g/dL Albumin 4.1 (3.5-5.0) g/dL Current Medications Generic Name Dose Route Start Last Admin Trade Name Freq PRN Reason Stop Dose Admin Acetaminophen 650 mg 06/16/23 18:51 06/16/23 23:53 Acetaminophen Tab 325 Mg Tab PO 650 mg Q6HR PRN Administration Mild Pain or Fever > 100.5 Hydrocodone Bitart/Acetaminophen 1 each 06/16/23 20:53 Hydrocodone/Apap 10-325mg 1 Each Tab PO Q6H PRN Severe Pain (Scale 7 to 10) Allopurinol 100 mg 06/17/23 09:00 Allopurinol 100 Mg Tab PO DAILY [facility] Amlodipine Besylate 10 mg 06/17/23 09:00 Amlodipine 10 Mg Tab PO DAILY [facility] Aspirin 325 mg 06/17/23 09:00 Aspirin 325 Mg Tab PO DAILY [facility] Clonazepam 0.5 mg 06/16/23 20:53 Clonazepam 0.5 Mg Tab PO TID PRN Anxiety Clonidine 0.2 mg 06/16/23 21:00 06/16/23 21:29 Clonidine Hcl 0.2 Mg Tab PO 0.2 mg BID JAMIE Administration Clopidogrel Bisulfate 75 mg 06/17/23 09:00 Clopidogrel 75 Mg Tab PO DAILY [facility] Docusate Sodium 100 mg 06/17/23 09:00 Docusate 100 Mg Cap PO DAILY [facility] Ezetimibe 10 mg 06/17/23 09:00 Ezetimibe 10 Mg Tab PO DAILY [facility] Glipizide 10 mg 06/16/23 21:00 06/16/23 21:29 Glipizide 10 Mg Tab PO 10 mg BID [facility] Administration Heparin Sodium (Porcine) 0 unit 06/16/23 19:33 06/17/23 02:36 Heparin Sodium 1,000 Un/Ml (10ml Vl) IV 4,000 unit PER PROTOCOL PRN Administration Low PTT Protocol Hydrochlorothiazide 12.5 mg 06/17/23 09:00 Hydrochlorothiazide 12.5 Mg Cap PO DAILY [facility] Sodium Chloride 1,000 mls @ 75 mls/hr 06/16/23 19:00 06/16/23 19:33 Saline 0.9% IV 75 mls/hr .[id number] JAMIE Administration Heparin Sodium/Sodium Chloride 250 mls @ 9.449 mls/hr 06/16/23 19:45 06/17/23 02:29 25,000 unit/ Sodium Chloride IV 15 units/kg/hr .Q24H [facility] 11.812 mls/hr Titration Protocol 12 UNITS/KG/HR Insulin Aspart 0 unit 06/17/23 07:30 06/17/23 06:49 Insulin Aspart (Novolog) 100 Unit/Ml Vial SQ Not Given ACHS [facility] Protocol Insulin Detemir 55 unit 06/16/23 21:00 06/16/23 22:52 Insulin Detemir (Levemir) 100 Unit/Ml Syr SQ 55 unit BID@0700,2100 [facility] Administration Linagliptin 5 mg 06/17/23 09:00 Linagliptin 5 Mg Tablet PO DAILY [facility] Loratadine 10 mg 06/17/23 09:00 Loratadine 10 Mg Tab PO DAILY [facility] Metoprolol Tartrate 50 mg 06/16/23 21:00 06/16/23 20:50 Metoprolol Tartrate 50 Mg Tab PO 50 mg BID [facility] Administration Naloxone HCl 0.2 mg 06/16/23 18:51 Naloxone 0.4 Mg/Ml 1 Ml Vial IV Q2M PRN Opioid Reversal Nitroglycerin 0.4 mg 06/16/23 18:53 06/16/23 23:53 Nitroglycerin Sl Tabs 0.4 Mg Tab SUBLINGUAL 0.4 mg Q5M PRN Administration Chest Pain Nitroglycerin 1 inch 06/17/23 00:00 06/17/23 06:44 Nitroglycerin Oint 1 Inch/Gm Packet TOPICAL Not Given Q6HR [facility] Patient's Own ( 3 mg 06/18/23 09:00 Dulaglutide [ SQ Trulicity] 3 Mg/0.5 HAWKINS JAMIE Ml Each) Pantoprazole Sodium 40 mg 06/17/23 07:30 Pantoprazole 40 Mg Tablet PO AC-BRKFST [facility] Pravastatin Sodium 40 mg 06/16/23 21:00 06/16/23 21:29 Pravastatin Sodium 40 Mg Tab PO 40 mg HS [facility] Administration Pregabalin 75 mg 06/16/23 21:00 06/16/23 21:29 Pregabalin 75 Mg Cap PO 75 mg BID [facility] Administration Quetiapine Fumarate 300 mg 06/16/23 21:00 06/16/23 22:52 Quetiapine 100 Mg Tab PO 300 mg HS [facility] Administration Tizanidine HCl 2 mg 06/16/23 20:53 Tizanidine 4 Mg Tab PO TID PRN Neck & Shoulder Spasms Trazodone HCl 150 mg 06/16/23 21:00 06/16/23 21:29 Trazodone Hcl 100 Mg Tab PO 150 mg HS [facility] Administration Vortioxetine 20 mg 06/17/23 09:00 Vortioxetine Hydrobromide 20 Mg Tablet PO DAILY [facility] Intake and Output 06/16/23 06/17/23 06/17/23 22:59 06:59 14:59 Intake Total 540 63.781 Balance 540 63.781 Intake: Intake, IV Titration 63.781 Amount Heparin Sod,Pork in 0.45% 63.781 NaCl 25,000 unit In 0.45 % NaCl 1 250ml.bag @ 12 UNITS/KG/HR 9.449 mls/hr IV .Q24H [facility] Rx#: [id number] Oral 540 Other: Voiding Method Toilet Toilet # Voids 1 Weight 78.744 kg 06/16/23 18:30 06/16/23 18:30
[2023-06-17 11:12] LABS: Glucose,Whole Blood 242 mg/dL (70-110)
[2023-06-17] MEDS ORDERED: INFLUENZA VACC (6 MOS-64 YRS) 60 MCG/0.5 ML SYRINGE IM ONE (11:16)
[2023-06-17] MEDS ORDERED: PNEUMOCOCCAL VACC-PREVNAR-20 0.5 ML SYR IM ONE (11:16)
[2023-06-17] MEDS ORDERED: Magnesium Replacement Protocol 1 EACH MISC MISCELLANE PRN (11:50)
[2023-06-17] MEDS ORDERED: Potassium Replacement Protocol 1 EACH MISC MISCELLANE PRN (11:50)
--- NOTE | 2023-06-17 12:46 | XR ---
EXAMINATION TYPE: XR KUB DATE OF EXAM: 06/17/2023 COMPARISON: None HISTORY: Pain TECHNIQUE: AP upright abdomen FINDINGS: Normal colonic bowel gas is present. No free air is present. No air-fluid levels or differe ntial air-fluid levels are present. Left iliac stent is present. Some bilateral proximal superficial femoral artery stents are present. Psoas margins are normal. No organomegaly is evident. No suspicious calcifications. IMPRESSION: 1. No suspicious acute changes upright abdomen
[2023-06-17] MEDS: POTASSIUM CHLORIDE ER 20 MEQ TAB.ER PO SCH (14:03)
[2023-06-17 16:13] LABS: Glucose,Whole Blood 180 mg/dL (70-110)
[2023-06-17 17:11] LABS: Chol/HDL Ratio 4.29 Ratio; LDL Cholesterol,Calculated 83.4 mg/dL (0.0-131.0)
[2023-06-17 19:56] LABS: Glucose,Whole Blood 173 mg/dL (70-110)
[2023-06-17] MEDS: HEPARIN SOD,PORK IN 0.45% NACL 25,000 UNIT in 0.45% NACL 1 250ML.BAG IV SCH (20:31)
[2023-06-17] MEDS: PRAVASTATIN SODIUM 40 MG TAB PO SCH (20:35)
[2023-06-17] MEDS: traZODone HCL 100 MG TAB PO SCH (20:35)
[2023-06-17] MEDS: clonazePAM 0.5 MG TAB PO PRN (20:36)
[2023-06-17] MEDS: PANTOPRAZOLE 40 MG/10 ML VIAL IVP SCH (20:37)
[2023-06-17] MEDS: QUEtiapine 100 MG TAB PO SCH (20:40)
[2023-06-18 06:10] LABS: Glucose,Whole Blood 47 mg/dL (70-110)
[2023-06-18 06:35] LABS: Glucose,Whole Blood 74 mg/dL (70-110)
[2023-06-18] MEDS: ACETAMINOPHEN TAB 325 MG TAB PO PRN (06:47)
[2023-06-18] MEDS: NITROGLYCERIN OINT 1 INCH/GM PACKET TOPICAL SCH ×4 (06:47→23:09)
[2023-06-18] MEDS: SODIUM CHLORIDE 0.9% 1,000 ML IV SCH ×2 (06:47→23:09)
[2023-06-18] MEDS: INSULIN ASPART (NovoLOG) 100 UNIT/ML VIAL SQ SCH ×4 (06:55→20:31)
--- NOTE | 2023-06-18 08:54 | P.PN ---
Subjective Progress Note Date: 06/18/23 Principal diagnosis: Hypertension emergency The patient is a 58-year-old female patient with coronary artery disease status post CABG 2 with unknown details the surgery was performed in [place] as well as his smoking and hypertension and dyslipidemia was admitted to the hospital with hypertension emergency and she was having chest discomfort and the troponin came in to be slightly abnormal but was flat across the board. Then she was seen and evaluated this morning. Currently she is chest pain-free with the pressure has been under a great control on the current medical regimen. She was not taking any medications when she presented to the hospital. The echo still pending. She is on dual antiplatelet therapy along with beta rhianna and statin. The examination is remarkable for stable vital signs with a regular rate and rhythm and clear breathing sounds bilaterally and no lower extremity edema noted Assessment Hypertension emergency Abnormal cardiac enzymes Coronary artery disease Noncompliance Smoking Plan Continue the current medical regimen Follow-up with the patient Follow-up with the echocardiogram Rule out obstructive coronary artery disease as an etiology for the elevated troponin Objective - Vital Signs Vital signs: Vital Signs Temp 97.8 F 06/17/23 16:25 Pulse 67 06/18/23 04:20 Resp 16 06/18/23 04:20 BP 119/75 06/18/23 04:20 Pulse Ox 95 06/18/23 08:01 FiO2 Intake & Output 06/17/23 06/18/23 06/18/23 18:59 06:59 18:59 Intake Total 931.346 634.873 Balance 931.346 634.873 Weight 78.744 kg Intake: Intake, IV Titration 691.346 94.873 Amount Heparin Sod,Pork in 0.45% 91.346 94.873 NaCl 25,000 unit In 0.45 % NaCl 1 250ml.bag @ 12 UNITS/KG/HR 9.449 mls/hr IV .Q24H [facility] Rx#: [id number] Sodium Chloride 0.9% 1, 600 000 ml @ 75 mls/hr IV . [id number] [facility] Rx#:[id number] Oral 240 540 Other: Voiding Method Toilet # Voids 1 - Labs CBC & Chem 7: 06/17/23 07:39 06/17/23 18:22 Labs: Abnormal Lab Results - Last 24 Hours (Table) 06/17/23 06/17/23 06/17/23 Range/Units 07:39 07:39 07:39 APTT 89.4 H (22.0-30.0) sec Potassium 3.0 L (3.5-5.1) mmol/L BUN 23 H (7-17) mg/dL Glucose 106 H (74-99) mg/dL POC Glucose (mg/dL) (70-110) mg/dL Hemoglobin A1c (<=6.0) % Delta Bilirubin 0.3 H (0.0-0.2) mg/dL AST 68 H (14-36) U/L Triglycerides 258.00 H (0.00-149.00) mg/dL VLDL Cholesterol, Calc 51.60 H (5.00-40.00) mg/dL Procalcitonin 0.12 H (0.02-0.09) ng/mL 06/17/23 06/17/23 06/17/23 Range/Units 08:41 11:10 15:47 APTT 58.2 H (22.0-30.0) sec Potassium (3.5-5.1) mmol/L BUN (7-17) mg/dL Glucose (74-99) mg/dL POC Glucose (mg/dL) 242 H (70-110) mg/dL Hemoglobin A1c 8.9 H (<=6.0) % Delta Bilirubin (0.0-0.2) mg/dL AST (14-36) U/L Triglycerides (0.00-149.00) mg/dL VLDL Cholesterol, Calc (5.00-40.00) mg/dL Procalcitonin (0.02-0.09) ng/mL 06/17/23 06/17/23 06/18/23 Range/Units 16:11 19:55 06:08 APTT (22.0-30.0) sec Potassium (3.5-5.1) mmol/L BUN (7-17) mg/dL Glucose (74-99) mg/dL POC Glucose (mg/dL) 180 H 173 H 47 L (70-110) mg/dL Hemoglobin A1c (<=6.0) % Delta Bilirubin (0.0-0.2) mg/dL AST (14-36) U/L Triglycerides (0.00-149.00) mg/dL VLDL Cholesterol, Calc (5.00-40.00) mg/dL Procalcitonin (0.02-0.09) ng/mL
[2023-06-18] MEDS ORDERED: PATIENT'S OWN (Dulaglutide [Trulicity] 3 MG/0.5 ML Each) SQ SCH (09:00)
[2023-06-18 09:19] LABS: Glucose,Whole Blood 271 mg/dL (70-110)
[2023-06-18] MEDS: allopurinoL 100 MG TAB PO SCH (09:22)
[2023-06-18] MEDS: PREGABALIN 75 MG CAP PO SCH ×2 (09:22→20:44)
[2023-06-18] MEDS: LINAGLIPTIN 5 MG TABLET PO SCH (09:22)
[2023-06-18] MEDS: ASPIRIN 81 MG PO SCH (09:22)
[2023-06-18] MEDS: PANTOPRAZOLE 40 MG/10 ML VIAL IVP SCH ×2 (09:22→20:46)
[2023-06-18] MEDS: glipiZIDE 10 MG TAB PO SCH ×2 (09:22→20:45)
[2023-06-18] MEDS: VORTIOXETINE HYDROBROMIDE 20 MG TABLET PO SCH (09:22)
[2023-06-18] MEDS: cloNIDine HCL 0.2 MG TAB PO SCH ×2 (09:22→20:45)
[2023-06-18] MEDS: LORATADINE 10 MG TAB PO SCH (09:22)
[2023-06-18] MEDS: METOPROLOL TARTRATE 50 MG TAB PO SCH ×2 (09:22→22:34)
[2023-06-18] MEDS: hydroCHLOROthiazide 12.5 MG CAP PO SCH (09:22)
[2023-06-18] MEDS: CLOPIDOGREL 75 MG TAB PO SCH (09:22)
[2023-06-18] MEDS: EZETIMIBE 10 MG TAB PO SCH (09:23)
[2023-06-18] MEDS: INSULIN DETEMIR (LEVEMIR) 100 UNIT/ML SYR SQ SCH ×2 (09:23→21:06)
[2023-06-18] MEDS: amLODIPine 10 MG TAB PO SCH (09:23)
[2023-06-18] MEDS: DOCUSATE 100 MG CAP PO SCH (09:29)
[2023-06-18 11:42] LABS: Glucose,Whole Blood 176 mg/dL (70-110)
[2023-06-18] MEDS: clonazePAM 0.5 MG TAB PO PRN (12:44)
[2023-06-18 12:57] LABS: African American GFR (CKD) >90 (>60 ml/min/1.73 sqM); Anion Gap 11 mmol/L; Blood Urea Nitrogen 19 mg/dL (7-17); Calcium 8.4 mg/dL (8.4-10.2); Carbon Dioxide 19 mmol/L (22-30); Chloride 105 mmol/L (98-107); Glucose 188 mg/dL (74-99); Magnesium 1.9 mg/dL (1.6-2.3); Non-African American GFR(CKD) >90 (>60 ml/min/1.73 sqM); Sodium 135 mmol/L (137-145)
[2023-06-18 12:59] LABS: Basophils % (A) 0 %; Eosinophils # (A) 0.1 k/uL (0-0.7); Eosinophils % (A) 1 %; HCT 42.9 % (34.0-46.0); Lymphocytes # (A) 2.2 k/uL (1.0-4.8); Lymphocytes % (A) 26 %; MCH 29.4 pg (25.0-35.0); MCHC 32.7 g/dL (31.0-37.0); Mean Platelet Volume 8.6; Monocytes # (A) 0.4 k/uL (0-1.0); Monocytes % (A) 5 %; Neutrophils # (A) 5.6 k/uL (1.3-7.7); Neutrophils % (A) 66 %; Platelet Count 161 k/uL (150-450); RBC 4.77 m/uL (3.80-5.40); RDW 14.4 % (11.5-15.5); WBC 8.5 k/uL (3.8-10.6)
[2023-06-18 13:08] LABS: Potassium 4.2 mmol/L (3.5-5.1)
--- NOTE | 2023-06-18 16:08 | CA ---
Transthoracic Echo Report Name: Tori Diehl Age: 58 Gender: F : 1965 Exam Date: 06/17/2023 13:10 Exam Location: [facility] Ht (in): 64 Wt (lb): 173 Ordering Physician: Lyndsey Gill Attending/Referring Phys: [id number], Bridget [employer] Gwen Noland RDCS Procedure CPT: Indications: LV function Cardiac Hx: Technical Quality: Technically difficult study Contrast 1: Definity Total Dose (mL): 2 Contrast 2: Total Dose (mL): MEASUREMENTS (Male / Female) Normal Values 2D ECHO LV Diastolic Diameter PLAX 3.6 cm 4.2 - 5.9 / 3.9 - 5.3 cm LV Systolic Diameter PLAX 2.1 cm IVS Diastolic Thickness 1.3 cm 0.6 - 1.0 / 0.6 - 0.9 cm LVPW Diastolic Thickness 1.4 cm 0.6 - 1.0 / 0.6 - 0.9 cm LV Relative Wall Thickness 0.7 RV Internal Dim ED PLAX 2.7 cm LA Volume 50.3 cm??? 18 - 58 / 22 - 52 cm??? LA Volume Index 26.3 cm???/m??? 16 - 28 cm???/m??? M-MODE Aortic Root Diameter MM 3.0 cm LA Systolic Diameter MM 3.5 cm LA Ao Ratio MM 1.2 AV Cusp Separation MM 1.4 cm DOPPLER AV Peak Velocity 146.7 cm/s AV Peak Gradient 8.6 mmHg AV Mean Velocity 103.1 cm/s AV Mean Gradient 4.9 mmHg AV Velocity Time Integral 25.5 cm LVOT Peak Velocity 124.6 cm/s LVOT Peak Gradient 6.2 mmHg LVOT Velocity Time Integral 30.7 cm MV Peak Velocity 125.2 cm/s MV Peak Gradient 6.3 mmHg MV Mean Velocity 66.2 cm/s MV Mean Gradient 2.1 mmHg MV Velocity Time Integral 38.8 cm MV Area PHT 2.8 cm??? Mitral E Point Velocity 103.0 cm/s Mitral A Point Velocity 122.4 cm/s Mitral E to A Ratio 0.8 MV Deceleration Time 272.9 ms MV E' Velocity 2.8 cm/s Mitral E to MV E' Ratio 36.7 TR Peak Velocity 198.7 cm/s TR Peak Gradient 15.8 mmHg Right Ventricular Systolic Press 20.8 mmHg FINDINGS Left Ventricle Mildly increased left ventricular wall thickness. Left ventricular cavity size normal. Normal left ventricular systolic function with no obvious regional wall motion abnormalities. Abnormal (paradoxical) septal motion consistent with postoperative state. Left ventricular ejection fraction is estimated at 55-60 %. Right Ventricle Normal right ventricular size and function. Right ventricular systolic pressure within normal limits. Right Atrium Normal right atrial size. Left Atrium Normal left atrial size. Mitral Valve Structurally normal mitral valve. Mild mitral annular calcification. Mild mitral regurgitation. Aortic Valve No aortic valve stenosis or regurgitation. Tricuspid Valve Structurally normal tricuspid valve. Mild tricuspid regurgitation. Pulmonic Valve Structurally normal pulmonic valve. Pericardium No pericardial effusion. Aorta Normal size aortic root and proximal ascending aorta. CONCLUSIONS Normal LV systolic function Previewed by: Dr. Josh Martin MD (Electronically Signed) Final Date: 18 June 2023 16:07
[2023-06-18 16:23] LABS: Glucose,Whole Blood 48 mg/dL (70-110)
[2023-06-18 16:43] LABS: Glucose,Whole Blood 85 mg/dL (70-110)
--- NOTE | 2023-06-18 20:11 | P.PN ---
Subjective This is a pleasant 58 years old female with multiple medical problems. Presents because of chest pain. Patient was transferred from [facility] for chest pain or dyspnea. Patient also was not taking her medication because she ran out of them. This Morning patient says she came because of chest pain for the last 2-3 days, central nonradiating o'clock sharp with no precipitating or relieving factors. Associated with some cough and white phlegm for the last 2 days. No dyspnea. She vomited 2 days ago but now stopped. No diarrhea no abdominal pain. No urinary complaints, she had some dysuria 2 days ago but none today. No suprapubic tenderness. She just has some dizziness but no headache weakness or numbness. She smokes about 1 pack for 2-3 days and she was counseled to quit and she agrees but she declines nicotine patch. No alcohol or illicit drugs Her PCP is Dr. Robin and Patient takes aspirin and Plavix at home for her legs. Her doctor is Dr. Bola Nick from outside system but she does not know his speciality Patient blood pressure is improved this morning 120/81, was elevated 209/84 on admission. Heart rate was elevated 108, currently 92. Rest of vital signs stable. She has leukocytosis 24,000, down to 15,000, hemoglobin 15.7, platelet count 273. Glucose elevated more than 300. Liver enzymes mildly elevated Records from [facility] reviewed showing urine analysis with protein and blood in urine. D-dimer is elevated 1.7. CTA is negative for pulmonary embolism, no aortic dissection or aneurysm Left thyroid nodule 1.6 cm Right upper lobe cavity 8 mm with few adjacent small cavities. Right adrenal mass 2.8 cm, contents found, no need for follow-up radiologist Chest x-ray showing left lower lobe atelectasis Urine drug screen is negative except for the thc CRP is -0.25 Influenza A and type B, RSV, SARS (coronavirus) are and detected Lactic acid is normal 1.6 Creatinine 1.1 BNP is 212. 06/18/2023 Patient looks comfortable no chest pain no dyspnea no other complaint no headache no neurological symptoms Blood pressure is controlled currently with systolic 110-140 Glucose controlled but was on the low side 47 earlier this morning, currently patient awake and alert at baseline. We going to lower her Levemir 55 units daily down to 25 units twice daily. Echocardiogram still pending with cardiology team on the case Review of systems CONSTITUTIONAL: No fever, no malaise, no fatigue. HEENT: No recent visual problems or hearing problems. Denied any sore throat. CARDIOVASCULAR: No orthopnea, PND, no palpitations, no syncope. PULMONARY: No shortness of breath, no cough, no hemoptysis. GASTROINTESTINAL: No diarrhea, no nausea, no vomiting, no abdominal pain. Normoactive bowel sounds. NEUROLOGICAL: No headaches, no weakness, no numbness. Active Medications Generic Name Dose Route Start Last Admin Trade Name Freq PRN Reason Stop Dose Admin Acetaminophen 650 mg 06/16/23 18:51 06/18/23 06:47 Acetaminophen Tab 325 Mg Tab PO 650 mg Q6HR PRN Administration Mild Pain or Fever > 100.5 Hydrocodone Bitart/Acetaminophen 1 each 06/16/23 20:53 06/17/23 09:33 Hydrocodone/Apap 10-325mg 1 Each Tab PO 1 each Q6H PRN Administration Severe Pain (Scale 7 to 10) Allopurinol 100 mg 06/17/23 09:00 06/18/23 09:22 Allopurinol 100 Mg Tab PO 100 mg DAILY JAMIE Administration Amlodipine Besylate 10 mg 06/17/23 09:00 06/18/23 09:23 Amlodipine 10 Mg Tab PO 10 mg DAILY JAMIE Administration Aspirin 81 mg 06/17/23 09:00 06/18/23 09:22 Aspirin 81 Mg PO 81 mg DAILY JAMIE Administration Clonazepam 0.5 mg 06/16/23 20:53 06/18/23 12:44 Clonazepam 0.5 Mg Tab PO 0.5 mg TID PRN Administration Anxiety Clonidine 0.2 mg 06/16/23 21:00 06/18/23 09:22 Clonidine Hcl 0.2 Mg Tab PO 0.2 mg BID JAMIE Administration Clopidogrel Bisulfate 75 mg 06/17/23 09:00 06/18/23 09:22 Clopidogrel 75 Mg Tab PO 75 mg DAILY JAMIE Administration Docusate Sodium 100 mg 06/17/23 09:00 06/18/23 09:29 Docusate 100 Mg Cap PO Not Given DAILY JAMIE Ezetimibe 10 mg 06/17/23 09:00 06/18/23 09:23 Ezetimibe 10 Mg Tab PO 10 mg DAILY JAMIE Administration Glipizide 10 mg 06/16/23 21:00 06/18/23 09:22 Glipizide 10 Mg Tab PO 10 mg BID JAMIE Administration Heparin Sodium (Porcine) 0 unit 06/16/23 19:33 06/17/23 02:36 Heparin Sodium 1,000 Un/Ml (10ml Vl) IV 4,000 unit PER PROTOCOL PRN Administration Low PTT Protocol Hydrochlorothiazide 12.5 mg 06/17/23 09:00 06/18/23 09:22 Hydrochlorothiazide 12.5 Mg Cap PO 12.5 mg DAILY JAMIE Administration Sodium Chloride 1,000 mls @ 75 mls/hr 06/16/23 19:00 06/18/23 06:47 Saline 0.9% IV 75 mls/hr .[id number] JAMIE Administration Heparin Sodium/Sodium Chloride 250 mls @ 9.449 mls/hr 06/16/23 19:45 06/18/23 11:45 25,000 unit/ Sodium Chloride IV 13 units/kg/hr .Q24H JAMIE 10.237 mls/hr Titration Protocol 12 UNITS/KG/HR Insulin Aspart 0 unit 06/17/23 07:30 06/18/23 17:21 Insulin Aspart (Novolog) 100 Unit/Ml Vial SQ Not Given ACHS [facility] Protocol Insulin Detemir 25 unit 06/18/23 21:00 Insulin Detemir (Levemir) 100 Unit/Ml Syr SQ BID@0700,2100 [facility] Linagliptin 5 mg 06/17/23 09:00 06/18/23 09:22 Linagliptin 5 Mg Tablet PO 5 mg DAILY JAMIE Administration Loratadine 10 mg 06/17/23 09:00 06/18/23 09:22 Loratadine 10 Mg Tab PO 10 mg DAILY JAMIE Administration Metoprolol Tartrate 50 mg 06/16/23 21:00 06/18/23 09:22 Metoprolol Tartrate 50 Mg Tab PO 50 mg BID JAMIE Administration Miscellaneous Information 1 each 06/17/23 11:50 Potassium Replacement Protocol 1 Each Misc MISCELLANE DAILY PRN Per Protocol Protocol Miscellaneous Information 1 each 06/17/23 11:50 Magnesium Replacement Protocol 1 Each Misc MISCELLANE DAILY PRN Per Protocol Protocol Naloxone HCl 0.2 mg 06/16/23 18:51 Naloxone 0.4 Mg/Ml 1 Ml Vial IV Q2M PRN Opioid Reversal Nitroglycerin 0.4 mg 06/16/23 18:53 06/16/23 23:53 Nitroglycerin Sl Tabs 0.4 Mg Tab SUBLINGUAL 0.4 mg Q5M PRN Administration Chest Pain Nitroglycerin 1 inch 06/17/23 00:00 06/18/23 17:17 Nitroglycerin Oint 1 Inch/Gm Packet TOPICAL 1 inch Q6HR JAMIE Administration Patient's Own ( 3 mg 06/18/23 09:00 06/18/23 17:21 Dulaglutide [ SQ Not Given Trulicity] 3 Mg/0.5 HAWKINS JAMIE Ml Each) Pantoprazole Sodium 40 mg 06/17/23 21:00 06/18/23 09:22 Pantoprazole 40 Mg/10 Ml Vial IVP 40 mg BID JAMIE Administration Pravastatin Sodium 40 mg 06/16/23 21:00 06/17/23 20:35 Pravastatin Sodium 40 Mg Tab PO 40 mg HS JAMIE Administration Pregabalin 75 mg 06/16/23 21:00 06/18/23 09:22 Pregabalin 75 Mg Cap PO 75 mg BID JAMIE Administration Quetiapine Fumarate 300 mg 06/16/23 21:00 06/17/23 20:40 Quetiapine 100 Mg Tab PO 300 mg HS JAMIE Administration Tizanidine HCl 2 mg 06/16/23 20:53 Tizanidine 4 Mg Tab PO TID PRN Neck & Shoulder Spasms Trazodone HCl 150 mg 06/16/23 21:00 06/17/23 20:35 Trazodone Hcl 100 Mg Tab PO 150 mg HS JAMIE Administration Vortioxetine 20 mg 06/17/23 09:00 06/18/23 09:22 Vortioxetine Hydrobromide 20 Mg Tablet PO 20 mg DAILY JAMIE Administration Objective - Vital Signs Vital signs: Vital Signs Temp 97.9 F 06/18/23 09:20 Pulse 73 06/18/23 09:20 Resp 16 06/18/23 09:20 BP 144/67 06/18/23 09:20 Pulse Ox 97 06/18/23 09:20 FiO2 Intake & Output 06/17/23 06/18/23 06/18/23 18:59 06:59 18:59 Intake Total 931.346 634.873 240 Balance 931.346 634.873 240 Weight 78.744 kg Intake: Intake, IV Titration 691.346 94.873 Amount Heparin Sod,Pork in 0.45% 91.346 94.873 NaCl 25,000 unit In 0.45 % NaCl 1 250ml.bag @ 12 UNITS/KG/HR 9.449 mls/hr IV .Q24H JAMIE Rx#: [id number] Sodium Chloride 0.9% 1, 600 000 ml @ 75 mls/hr IV . [id number] JAMIE Rx#:[id number] Oral 240 540 240 Other: Voiding Method Toilet Toilet # Voids 1 - Exam GENERAL: The patient is alert and oriented x3, not in any acute distress. Well developed, well nourished. HEENT: Pupils are round and equally reacting to light. EOMI. No scleral icterus. No conjunctival pallor. Normocephalic, atraumatic. No pharyngeal erythema. No thyromegaly. CARDIOVASCULAR: S1 and S2 present. No murmurs, rubs, or gallops. PULMONARY: Chest is clear to auscultation, no wheezing , no crackles. ABDOMEN: Soft, nontender, nondistended, normoactive bowel sounds. No palpable organomegaly. MUSCULOSKELETAL: No joint swelling or deformity. EXTREMITIES: No cyanosis, clubbing, or pedal edema. NEUROLOGICAL: Gross neurological examination did not reveal any focal deficits. SKIN: No rashes. no petechiae. - Labs CBC & Chem 7: 06/18/23 11:17 06/18/23 11:17 Labs: Abnormal Lab Results - Last 24 Hours (Table) 06/17/23 06/17/23 06/17/23 Range/Units 07:39 07:39 08:41 APTT (22.0-30.0) sec POC Glucose (mg/dL) (70-110) mg/dL Hemoglobin A1c 8.9 H (<=6.0) % Triglycerides 258.00 H (0.00-149.00) mg/dL VLDL Cholesterol, Calc 51.60 H (5.00-40.00) mg/dL Procalcitonin 0.12 H (0.02-0.09) ng/mL 06/17/23 06/17/23 06/17/23 Range/Units 15:47 16:11 19:55 APTT 58.2 H (22.0-30.0) sec POC Glucose (mg/dL) 180 H 173 H (70-110) mg/dL Hemoglobin A1c (<=6.0) % Triglycerides (0.00-149.00) mg/dL VLDL Cholesterol, Calc (5.00-40.00) mg/dL Procalcitonin (0.02-0.09) ng/mL 06/18/23 06/18/23 06/18/23 Range/Units 06:08 09:17 11:40 APTT (22.0-30.0) sec POC Glucose (mg/dL) 47 L 271 H 176 H (70-110) mg/dL Hemoglobin A1c (<=6.0) % Triglycerides (0.00-149.00) mg/dL VLDL Cholesterol, Calc (5.00-40.00) mg/dL Procalcitonin (0.02-0.09) ng/mL Assessment and Plan Assessment: Chest pain, with elevated troponin rule out coronary artery disease Hypertension, uncontrolled on admission, currently controlled Nonadherence to medication Nicotine dependence Obesity with BMI of 29.8 Diabetes mellitus, with hyperglycemia Hyperlipidemia History of depression, currently not active issue and she denies suicidal ideation or homicidal ideation Left thyroid nodule 1.6 cm, follow-up with lap checker as an outpatient Dr. Martinez in 1-2 weeks after discharge, risks including but not limited to cancer explained, patient & son agree 8 mm right upper lung cavity,Common follow-up with public address systems mechanic as an outpatient, risks including but not limited to cancer explained, patient & son mr.Gerard gamboa Plan: Continue with heparin drip Continue with aspirin and Plavix Cardiology consult Follow-up echocardiogram Get blood culture with WBC monitoring. Check procalcitonin Labs and medication were reviewed.. Continue same treatment. Continue with symptomatic treatment. Resume home medication. Monitor lytes and vitals. DVT and GI prophylaxis. Further recommendations depends on the clinical course of the patient DVT prophylaxis: heparin GI Prophylaxis: Ppi Prognosis is guarded
[2023-06-18 20:22] LABS: Glucose,Whole Blood 145 mg/dL (70-110)
[2023-06-18] MEDS: traZODone HCL 100 MG TAB PO SCH (20:45)
[2023-06-18] MEDS: QUEtiapine 100 MG TAB PO SCH (20:45)
[2023-06-18] MEDS: PRAVASTATIN SODIUM 40 MG TAB PO SCH (20:46)
[2023-06-18] MEDS: HEPARIN SOD,PORK IN 0.45% NACL 25,000 UNIT in 0.45% NACL 1 250ML.BAG IV SCH (20:54)
[2023-06-18] MEDS ORDERED: INSULIN DETEMIR (LEVEMIR) 100 UNIT/ML SYR SQ SCH (21:00)
[2023-06-19] MEDS: ACETAMINOPHEN TAB 325 MG TAB PO PRN ×2 (01:43→21:19)
[2023-06-19 06:04] LABS: Glucose,Whole Blood 92 mg/dL (70-110)
[2023-06-19] MEDS: INSULIN ASPART (NovoLOG) 100 UNIT/ML VIAL SQ SCH ×4 (06:07→20:35)
[2023-06-19] MEDS: NITROGLYCERIN OINT 1 INCH/GM PACKET TOPICAL SCH ×2 (06:12→13:23)
[2023-06-19] MEDS: INSULIN DETEMIR (LEVEMIR) 100 UNIT/ML SYR SQ SCH ×2 (06:12→21:19)
[2023-06-19] MEDS: PANTOPRAZOLE 40 MG/10 ML VIAL IVP SCH ×2 (09:38→20:35)
[2023-06-19] MEDS: hydroCHLOROthiazide 12.5 MG CAP PO SCH (09:39)
[2023-06-19] MEDS: ASPIRIN 81 MG PO SCH (09:39)
[2023-06-19] MEDS: cloNIDine HCL 0.2 MG TAB PO SCH ×2 (09:39→20:34)
[2023-06-19] MEDS: LORATADINE 10 MG TAB PO SCH (09:39)
[2023-06-19] MEDS: DOCUSATE 100 MG CAP PO SCH (09:39)
[2023-06-19] MEDS: METOPROLOL TARTRATE 50 MG TAB PO SCH ×2 (09:39→20:34)
[2023-06-19] MEDS: VORTIOXETINE HYDROBROMIDE 20 MG TABLET PO SCH (09:39)
[2023-06-19] MEDS: allopurinoL 100 MG TAB PO SCH (09:39)
[2023-06-19] MEDS: glipiZIDE 10 MG TAB PO SCH ×2 (09:39→20:34)
[2023-06-19] MEDS: amLODIPine 10 MG TAB PO SCH (09:40)
[2023-06-19] MEDS: EZETIMIBE 10 MG TAB PO SCH (09:40)
[2023-06-19] MEDS: PREGABALIN 75 MG CAP PO SCH ×2 (09:40→20:34)
[2023-06-19] MEDS: LINAGLIPTIN 5 MG TABLET PO SCH (09:42)
[2023-06-19] MEDS: CLOPIDOGREL 75 MG TAB PO SCH (09:43)
[2023-06-19 11:34] LABS: Glucose,Whole Blood 230 mg/dL (70-110)
[2023-06-19] MEDS: clonazePAM 0.5 MG TAB PO PRN (12:13)
[2023-06-19] MEDS: ISOSORBIDE MONONITRATE ER 30 MG TAB.ER.24H PO SCH (12:21)
--- NOTE | 2023-06-19 14:12 | P.PN ---
Subjective Progress Note Date: 06/19/23 Principal diagnosis: Hypertension emergency The patient is a 58-year-old female patient with coronary artery disease status post CABG 2 with unknown details the surgery was performed in [place] as well as his smoking and hypertension and dyslipidemia was admitted to the hospital with hypertension emergency and she was having chest discomfort and the troponin came in to be slightly abnormal but was flat across the board. Then she was seen and evaluated this morning. Currently she is chest pain-free with the pressure has been under a great control on the current medical regimen. She was not taking any medications when she presented to the hospital. The echo still p ending. She is on dual antiplatelet therapy along with beta rhianna and statin. 06/19 She is seen today in follow-up. Blood pressure is now running 129-143 systolic., Heart rate is in the 60s and 70s. Echocardiogram reveals normal LV systolic function. Mild mitral regurgitation and mild tricuspid regurgitation. The examination is remarkable for stable vital signs with a regular rate and rh ythm and clear breathing sounds bilaterally and no lower extremity edema noted Assessment Hypertension emergency Abnormal cardiac enzymes possibly due to hypertension Coronary artery disease Noncompliance Smoking Plan Continue the current medical regimen Add Imdur 30 mg daily Patient is cleared from cardiology for discharge and a follow-up with Dr. Martin in one week. Nurse practitioner note has been reviewed, I agree with the documented findings and plan of care. Patient was seen and examined. Objective - Vital Signs Vital signs: Vital Signs Temp 97.9 F 06/19/23 08:10 Pulse 78 06/19/23 08:10 Resp 18 06/19/23 08:10 BP 143/69 06/19/23 08:10 Pulse Ox 96 06/19/23 08:10 FiO2 Intake & Output 06/18/23 06/19/23 06/19/23 18:59 06:59 18:59 Intake Total 1351.944 633.669 180 Balance 1351.944 633.669 180 Intake: Intake, IV Titration 155.944 93.669 Amount Heparin Sod,Pork in 0.45% 155.944 93.669 NaCl 25,000 unit In 0.45 % NaCl 1 250ml.bag @ 12 UNITS/KG/HR 9.449 mls/hr IV .Q24H JAMIE Rx#: [id number] Oral 1196 540 180 Other: Voiding Method Toilet Toilet # Voids 3 2 # Bowel Movements 1 - Labs CBC & Chem 7: 06/18/23 11:17 06/18/23 11:17 Labs: Abnormal Lab Results - Last 24 Hours (Table) 06/18/23 06/18/23 06/18/23 Range/Units 11:17 11:17 16:18 APTT 45.0 H (22.0-30.0) sec Sodium 135 L (137-145) mmol/L Carbon Dioxide 19 L (22-30) mmol/L BUN 19 H (7-17) mg/dL Glucose 188 H (74-99) mg/dL POC Glucose (mg/dL) 48 L (70-110) mg/dL 06/18/23 06/19/23 06/19/23 Range/Units 20:20 06:54 11:33 APTT 49.2 H (22.0-30.0) sec Sodium (137-145) mmol/L Carbon Dioxide (22-30) mmol/L BUN (7-17) mg/dL Glucose (74-99) mg/dL POC Glucose (mg/dL) 145 H 230 H (70-110) mg/dL Microbiology - Last 24 Hours (Table) 06/17/23 09:45 Blood Culture - Preliminary Blood
[2023-06-19 16:12] LABS: Glucose,Whole Blood 111 mg/dL (70-110)
[2023-06-19 16:20] LABS: Glucose,Whole Blood 107 mg/dL (70-110)
[2023-06-19] MEDS ORDERED: INFLUENZA VACC (6 MOS-64 YRS) 60 MCG/0.5 ML SYRINGE IM ONE (17:59)
[2023-06-19] MEDS ORDERED: PNEUMOCOCCAL VACC-PREVNAR-20 0.5 ML SYR IM ONE (18:00)
[2023-06-19 20:13] LABS: Glucose,Whole Blood 205 mg/dL (70-110)
[2023-06-19] MEDS: QUEtiapine 100 MG TAB PO SCH (20:34)
[2023-06-19] MEDS: PRAVASTATIN SODIUM 40 MG TAB PO SCH (20:34)
[2023-06-19 20:35] VITALS: TEMP 97.6
[2023-06-19] MEDS: traZODone HCL 100 MG TAB PO SCH (20:35)
[2023-06-20 06:15] LABS: Glucose,Whole Blood 97 mg/dL (70-110)
[2023-06-20] MEDS: INSULIN ASPART (NovoLOG) 100 UNIT/ML VIAL SQ SCH ×3 (06:17→17:16)
[2023-06-20] MEDS: ACETAMINOPHEN TAB 325 MG TAB PO PRN (06:49)
--- NOTE | 2023-06-20 08:19 | P.PN ---
Subjective This is a pleasant 58 years old female with multiple medical problems. Presents because of chest pain. Patient was transferred from [facility] for chest pain or dyspnea. Patient also was not taking her medication because she ran out of them. This Morning patient says she came because of chest pain for the last 2-3 days, central nonradiating o'clock sharp with no precipitating or relieving factors. Associated with some cough and white phlegm for the last 2 days. No dyspnea. She vomited 2 days ago but now stopped. No diarrhea no abdominal pain. No urinary complaints, she had some dysuria 2 days ago but none today. No suprapubic tenderness. She just has some dizziness but no headache weakness or numbness. She smokes about 1 pack for 2-3 days and she was counseled to quit and she agrees but she declines nicotine patch. No alcohol or illicit drugs Her PCP is Dr. Robin and Patient takes aspirin and Plavix at home for her legs. Her doctor is Dr. Bola Nick from outside system but she does not know his speciality Patient blood pressure is improved this morning 120/81, was elevated 209/84 on admission. Heart rate was elevated 108, currently 92. Rest of vital signs stable. She has leukocytosis 24,000, down to 15,000, hemoglobin 15.7, platelet count 273. Glucose elevated more than 300. Liver enzymes mildly elevated Records from [facility] reviewed showing urine analysis with protein and blood in urine. D-dimer is elevated 1.7. CTA is negative for pulmonary embolism, no aortic dissection or aneurysm Left thyroid nodule 1.6 cm Right upper lobe cavity 8 mm with few adjacent small cavities. Right adrenal mass 2.8 cm, contents found, no need for follow-up radiologist Chest x-ray showing left lower lobe atelectasis Urine drug screen is negative except for the thc CRP is -0.25 Influenza A and type B, RSV, SARS (coronavirus) are and detected Lactic acid is normal 1.6 Creatinine 1.1 BNP is 212. 06/18/2023 Patient looks comfortable no chest pain no dyspnea no other complaint no headache no neurological symptoms Blood pressure is controlled currently with systolic 110-140 Glucose controlled but was on the low side 47 earlier this morning, currently patient awake and alert at baseline. We going to lower her Levemir 55 units daily down to 25 units twice daily. Echocardiogram still pending with cardiology team on the case 06/19/2023 Patient was admitted for hypertensive urgencies with chest pain and elevated troponin. She recently moved from [facility]. She came because of non-adherence to her medication. She doesn't have primary care doctor yet in [place]. Apparently she denies chest pain or dyspnea. Blood pressure controlled on several antihypertensive medication. Echocardiogram was done. She is currently on aspirin 81 mg and Plavix. Patient was cleared for discharge by mailing clerk for discharge and her heparin drip which was started on admission was discontinued. Patient also was taken Xarelto at home,(not started yet as inpatient) stating she was taken because of her peripheral vascular disease. We will discuss with cardiology team tomorrow about her anticoagulation and antiplatelet management. Patient and her son are also aware about her thyroid nodule and she is going to follow up with bus driver supervisor as an outpatient. permit made for her with Dr. Nick. Also patient with pulmonary cavity and she is going to follow up with Dr. Scherer on 07/11. Her sugar is better controlled after decrease her Levemir 55 units daily down to 25 units twice a day possible discharge in 24-48 hours Objective - Vital Signs Vital signs: Vital Signs Temp 97.6 F 06/19/23 20:29 Pulse 62 06/19/23 23:14 Resp 18 06/19/23 23:14 BP 124/71 06/19/23 23:14 Pulse Ox 91 L 06/19/23 23:14 FiO2 Intake & Output 06/19/23 06/19/23 06/20/23 06:59 18:59 06:59 Intake Total 633.669 360 360 Balance 633.669 360 360 Intake: Intake, IV Titration 93.669 Amount Heparin Sod,Pork in 0.45% 93.669 NaCl 25,000 unit In 0.45 % NaCl 1 250ml.bag @ 12 UNITS/KG/HR 9.449 mls/hr IV .Q24H JAMIE Rx#: [id number] Oral 540 360 360 Other: Voiding Method Toilet # Voids 2 2 1 # Bowel Movements 1 - Exam GENERAL: The patient is alert and oriented x3, not in any acute distress. Well developed, well nourished. HEENT: Pupils are round and equally reacting to light. EOMI. No scleral icterus. No conjunctival pallor. Normocephalic, atraumatic. No pharyngeal erythema. No thyromegaly. CARDIOVASCULAR: S1 and S2 present. No murmurs, rubs, or gallops. PULMONARY: Chest is clear to auscultation, no wheezing , no crackles. ABDOMEN: Soft, nontender, nondistended, normoactive bowel sounds. No palpable organomegaly. MUSCULOSKELETAL: No joint swelling or deformity. EXTREMITIES: No cyanosis, clubbing, or pedal edema. NEUROLOGICAL: Gross neurological examination did not reveal any focal deficits. SKIN: No rashes. no petechiae. - Labs CBC & Chem 7: 06/18/23 11:17 06/18/23 11:17 Labs: Abnormal Lab Results - Last 24 Hours (Table) 06/19/23 06/19/23 06/19/23 Range/Units 06:54 11:33 16:10 APTT 49.2 H (22.0-30.0) sec POC Glucose (mg/dL) 230 H 111 H (70-110) mg/dL 06/19/23 Range/Units 20:11 APTT (22.0-30.0) sec POC Glucose (mg/dL) 205 H (70-110) mg/dL Microbiology - Last 24 Hours (Table) 06/17/23 09:45 Blood Culture - Preliminary Blood Assessment and Plan Assessment: Chest pain, with elevated troponin rule out coronary artery disease Hypertension, uncontrolled on admission, currently controlled Nonadherence to medication Nicotine dependence Obesity with BMI of 29.8 Diabetes mellitus, with hyperglycemia Hyperlipidemia History of depression, currently not active issue and she denies suicidal ideation or homicidal ideation Left thyroid nodule 1.6 cm, follow-up with bus driver supervisor as an outpatient Dr. Martinez in 1-2 weeks after discharge, risks including but not limited to cancer explained, patient & son agree 8 mm right upper lung cavity,Common follow-up with wound/ostomy clinical nurse specialist as an outpatient, risks including but not limited to cancer explained, patient & son mr.Gerard gamboa Plan: heparin drip was discontinued however her anticoagulation with xazrelto was not restarted yet Continue with aspirin and Plavix Cardiology consult Labs and medication were reviewed.. Continue same treatment. Continue with symptomatic treatment. Resume home medication. Monitor lytes and vitals. DVT and GI prophylaxis. Further recommendations depends on the clinical course of the patient DVT prophylaxis: heparin GI Prophylaxis: Ppi Prognosis is guarded
[2023-06-20 09:27] LABS: HCT 42.3 % (34.0-46.0); HGB 13.6 gm/dL (11.4-16.0); MCH 29.3 pg (25.0-35.0); MCHC 32.3 g/dL (31.0-37.0); MCV 90.9 fL (80.0-100.0); Mean Platelet Volume 9.2; Platelet Count 158 k/uL (150-450); RBC 4.65 m/uL (3.80-5.40); RDW 14.8 % (11.5-15.5); WBC 8.3 k/uL (3.8-10.6)
[2023-06-20 09:38] LABS: African American GFR (CKD) >90 (>60 ml/min/1.73 sqM); Anion Gap 8 mmol/L; Blood Urea Nitrogen 13 mg/dL (7-17); Calcium 8.8 mg/dL (8.4-10.2); Carbon Dioxide 26 mmol/L (22-30); Chloride 105 mmol/L (98-107); Glucose 173 mg/dL (74-99); Non-African American GFR(CKD) >90 (>60 ml/min/1.73 sqM); Potassium 3.9 mmol/L (3.5-5.1); Sodium 139 mmol/L (137-145)
[2023-06-20] MEDS: DOCUSATE 100 MG CAP PO SCH (10:09)
[2023-06-20] MEDS: LORATADINE 10 MG TAB PO SCH (10:09)
[2023-06-20] MEDS: glipiZIDE 10 MG TAB PO SCH (10:09)
[2023-06-20] MEDS: ASPIRIN 81 MG PO SCH (10:09)
[2023-06-20] MEDS: amLODIPine 10 MG TAB PO SCH (10:10)
[2023-06-20] MEDS: METOPROLOL TARTRATE 50 MG TAB PO SCH (10:10)
[2023-06-20] MEDS: LINAGLIPTIN 5 MG TABLET PO SCH (10:10)
[2023-06-20] MEDS: ISOSORBIDE MONONITRATE ER 30 MG TAB.ER.24H PO SCH (10:10)
[2023-06-20] MEDS: CLOPIDOGREL 75 MG TAB PO SCH (10:10)
[2023-06-20] MEDS: cloNIDine HCL 0.2 MG TAB PO SCH (10:11)
[2023-06-20] MEDS: allopurinoL 100 MG TAB PO SCH (10:12)
[2023-06-20] MEDS: PREGABALIN 75 MG CAP PO SCH (10:12)
[2023-06-20] MEDS: EZETIMIBE 10 MG TAB PO SCH (10:12)
[2023-06-20] MEDS: PANTOPRAZOLE 40 MG/10 ML VIAL IVP SCH (10:13)
[2023-06-20] MEDS: hydroCHLOROthiazide 12.5 MG CAP PO SCH (10:14)
[2023-06-20 11:24] LABS: Glucose,Whole Blood 136 mg/dL (70-110)
[2023-06-20] MEDS: INSULIN DETEMIR (LEVEMIR) 100 UNIT/ML SYR SQ SCH (12:45)
[2023-06-20] MEDS: VORTIOXETINE HYDROBROMIDE 20 MG TABLET PO SCH (12:45)
[2023-06-20 15:46] VITALS: BP 128/61; PULSE 59; RESP 16
[2023-06-20 16:44] LABS: Glucose,Whole Blood 150 mg/dL (70-110)
--- NOTE | 2023-06-21 16:44 | P.DS ---
Providers Date of admission: 06/16/23 18:52 Attending physician: Miroslava Dickinson Consults: 06/16/23 18:51 Consult Physician Routine Consulting Provider: Josh Martin Consult Reason/Comments: cp Do you want consulting provider notified?: Yes Primary care physician: Stated None Hospital Course: Final Diagnosis Chest pain, with elevated troponin cardiology felt due to hypertension unable to completely rule out nstemi Hypertension with urgency on admission. Nausea and vomiting unclear etiology KUB negative. Leukocytosis reactive and normalized Elevated D dimer CT negative for PE Nonadherence to medication Nicotine dependence Obesity with BMI of 29.8 Diabetes mellitus, with hyperglycemia hemoglobin A1C 8.9 Hyperlipidemia History of depression, currently not active issue and she denies suicidal ideation or homicidal ideation Left thyroid nodule 1.6 cm, outpatient follow up recommended with thyroid ultrasound 8 mm right upper lung cavity consistent with infection, outpatient follow up recommended Coronary artery disease with prior CABG 2 vessel in 2017 maintained on dual antiplatelet therapy. Prior history right shoulder replacement Chronic nicotine dependence Marijuana use Full Code Discharge Disposition Patient is stable for discharge home. Cardiac medications have been adjusted and cardiology has recommended the addition of imdur 30 mg daily. Patient has been referred to Dr. Hernandez in 1-2 weeks after discharge regarding the left thyroid nodule to rule out underlying process such as cancer. Additionally, she needs to follow up with a carpet yarn winder operator regarding the right upper lobe lung cavity. Patient needs to follow up with Dr. Martin for further evaluation for cardiac catheterization. Patient has been taking xarelto 2.5 mg BID at home states this was due to the artery disease and prior open heart discussed with cardiology and recommending to continue on aspirin/plavix on discharge. Discussed with patient. Hospital course This is a 58 year old female history of CABG, diabetes mellitus, hypertension. Recently moved to [place] from [place] and staying with her son. She has not been able to establish care with a PCP yet and states she was out of her BP medication. Came to [facility] with complaints of nausea, vomiting and mid chest pain pressure like sensation. No radiation, no shortness of breath. No dizziness or lightheadedness. It went away on its own . Her systolic blood pressure greater than 200 on admission. There was also mildly elevated troponin was started on IV heparin. There she had a chest CTA which reveals no evidence of pulmonary embolism, there is 8 mmg cavity seen in the right upper lobe without soft tissue component likely representing remote infection. There is 1.6 cm hypodense nodule left lobe of the thyroid gland with coarse calcification thyroid US recommended on nonemergent basis. Fatty containing mass right adrenal gland measuring up to 2.8 cm, no follow up necessary. Patient also had chest xray there showing mild subsegmental atelectasis in the left base. Urine drug toxicology was negative, she had elevated d dimer and mildly elevated proBNP. She was sent down from [facility] for cardiac evaluation. Admitted to this hospital with cardiology consultation. Currently denying chest pain. Echocardiogram reveals normal LV function. Cardiology had initially recommended cardiac catheterization. Troponins were elevated at this hospital 0.097, 0.094, 0.088. Patient was started on imdur. Chest pain has resolved. Taken off IV heparin. Had lipid panel done revealing triglycerides 258, LDl 51.60, HDL 41, cholesterol 176. Viral panel negative. Was hyperglycemia hemoglobin A1C 8.9. All medications were refilled for patient. Cardiology now recommending outpatient follow up. Lungs are clear S1 S2 auscultated she is alert x 3 and no focal neurological deficits cleared for discharge. Please see medication reconciliation for a list of current medications. Thank you for allowing us to participate in the care of this patient. The impression and plan of care has been dictated by Essence Francois, Nurse Practitioner as directed. Dr. Mary MD I have performed a history and physical examination and medical decision making of this patient, discussed the same with the dictator, and agree with the dictators assessment and plan as written, documented as a scribe. Based on total visit time, I have performed more than 50% of this visit. Patient Condition at Discharge: Fair Plan - Discharge Summary Discharge Rx Participant: Yes New Discharge Prescriptions: New Aspirin 81 mg PO DAILY #30 tab Isosorbide Mononitrate ER [Imdur] 30 mg PO DAILY #30 tab Continue clonazePAM [KlonoPIN] 0.5 mg PO TID PRN PRN Reason: Anxiety Dulaglutide [Trulicity] 3 mg SQ HAWKINS HYDROcodone/APAP 10-325MG [[place] 10-325] 1 tab PO Q6H PRN PRN Reason: Severe Pain (Scale 7 To 10) Loratadine [Claritin] 10 mg PO DAILY Pregabalin [Lyrica] 75 mg PO BID Metoprolol Tartrate [Lopressor] 50 mg PO BID #60 tab amLODIPine [Norvasc] 10 mg PO DAILY #30 tab Clopidogrel [Plavix] 75 mg PO DAILY #30 tab Pravastatin Sodium [Pravachol] 40 mg PO HS #30 tab Ezetimibe [Zetia] 10 mg PO DAILY #30 tab allopurinoL 100 mg PO DAILY Docusate [Colace] 100 mg PO DAILY Insulin Glargine [Lantus Vial] 55 unit SQ BID Omeprazole 40 mg PO AC-BRKFST QUEtiapine FUMARATE [SEROquel] 300 mg PO HS traZODone HCL 150 mg PO HS cloNIDine HCL [Catapres] 0.2 mg PO BID #60 tab glipiZIDE [Glucotrol] 10 mg PO BID #60 tab hydroCHLOROthiazide 12.5 mg PO DAILY #30 cap sitaGLIPtin [Januvia] 100 mg PO DAILY #30 tab Vortioxetine Hydrobromide [Trintellix] 20 mg PO DAILY #30 tab Discontinued Rivaroxaban [Xarelto] 2.5 mg PO BID tiZANidine HCL [Zanaflex] 2 mg PO TID PRN PRN Reason: Neck & Shoulder Spasms Discharge Medication List Docusate [Colace] 100 mg PO DAILY 06/16/23 [History] Dulaglutide [Trulicity] 3 mg SQ HAWKINS 06/16/23 [History] HYDROcodone/APAP 10-325MG [[place] 10-325] 1 tab PO Q6H PRN 06/16/23 [History] Insulin Glargine [Lantus Vial] 55 unit SQ BID 06/16/23 [History] Loratadine [Claritin] 10 mg PO DAILY 06/16/23 [History] Omeprazole 40 mg PO AC-BRKFST 06/16/23 [History] Pregabalin [Lyrica] 75 mg PO BID 06/16/23 [History] QUEtiapine FUMARATE [SEROquel] 300 mg PO HS 06/16/23 [History] allopurinoL 100 mg PO DAILY 06/16/23 [History] clonazePAM [KlonoPIN] 0.5 mg PO TID PRN 06/16/23 [History] traZODone HCL 150 mg PO HS 06/16/23 [History] Aspirin 81 mg PO DAILY #30 tab 06/20/23 [Rx] Clopidogrel [Plavix] 75 mg PO DAILY #30 tab 06/20/23 [Rx] Ezetimibe [Zetia] 10 mg PO DAILY #30 tab 06/20/23 [Rx] Isosorbide Mononitrate ER [Imdur] 30 mg PO DAILY #30 tab 06/20/23 [Rx] Metoprolol Tartrate [Lopressor] 50 mg PO BID #60 tab 06/20/23 [Rx] Pravastatin Sodium [Pravachol] 40 mg PO HS #30 tab 06/20/23 [Rx] Vortioxetine Hydrobromide [Trintellix] 20 mg PO DAILY #30 tab 06/20/23 [Rx] amLODIPine [Norvasc] 10 mg PO DAILY #30 tab 06/20/23 [Rx] cloNIDine HCL [Catapres] 0.2 mg PO BID #60 tab 06/20/23 [Rx] glipiZIDE [Glucotrol] 10 mg PO BID #60 tab 06/20/23 [Rx] hydroCHLOROthiazide 12.5 mg PO DAILY #30 cap 06/20/23 [Rx] sitaGLIPtin [Januvia] 100 mg PO DAILY #30 tab 06/20/23 [Rx] Follow up Appointment(s)/Referral(s): [facility] [REFERRING] - As Needed (Contact this agency to apply for Medicaid. ) Josh Martin MD [STAFF PHYSICIAN] - 1 Week (A staff member from [facility] will call patient with follow up appointment date and time, per [facility]. ) Manju Davenport DO [STAFF PHYSICIAN] - 1 Week (vascular surgeon ) Raymon Scherer DO [Doctor of Osteopathic Medicine] - 07/11/23 1:15 pm (pulmonology) Amara Clement, JULIUS [REFERRING] - 1 Week ([facility] Potential PCP) Shelly Nick [STAFF PHYSICIAN] - 08/10/23 11:45 am (enocrinology for your thyroid nodule (risk for a tumor) ) Ambulatory/Diagnostic Orders: Basic Metabolic Panel [LAB.AMB] Time Frame: 3 Days, Location: None Selected Complete Blood Count w/diff [LAB.AMB] Location: None Selected Patient Instructions/Handouts: Chest Pain (DC), Heart Healthy Diet (DC), Hypertension (DC) Activity/Diet/Wound Care/Special Instructions: heart healthy diet , low carbohydrate diet 1600 k gema per day activity is restricted till you see your doctor we recommend to check your glucose 4 times a day, before each meal and at bed time , keep the results in a log book and bring it to your doctor on your appointment date if your glucose is less than 70 or more than 400 then call 911 and come to emergency room [address] [address] Potential PCP Discharge/Stand Alone Forms: Area PCPs Discharge Disposition: HOME SELF-CARE
--- NOTE | 2023-06-22 10:16 | CDI ---
Documentation Clarification Form Date: 06/22/2023 10:05:44 AM From: Mary Alice Ford Admit Date: 06/16/2023 06:52:00 PM Patient Name: Tori Dihel Visit Number: [id number] Discharge Date: 06/20/2023 06:19:00 PM ATTENTION: The Clinical Documentation Specialists (CDI) and [facility] Coding Staff appreciate your assistance in clarifying documentation. Please respond to the clarification below the line at the bottom and electronically sign. The CDI & [facility] Coding staff will review the response and follow-up if needed. Please note: Queries are made part of the Legal Health Record. If you have any questions, please contact the author of this message via ITS. Dr. Tahir Hernandez, Your patient has troponin level(s) of: 0.097 (06/16), 0.094 (06/16) & 0.088 (06/17. Please clarify if there is an additional diagnosis and/or clinical significance related to this value. Patient history/risk factors: cad W CABG in 207, HTN, HLD, T2DM, 1 pack a day smoker Clinical indicators: Chest pain, withelevated troponincardiology felt due tohypertensionunable to completelyrule outnstemi EKG reveals sinus mechanism with nonspecific ST-T wave changes. Evidence of LVH. No previous EKG available for comparison. Treatment: 2-D Echo, IV Heparin, home cardiac medications Is there an additional diagnosis and/or clinical significance related to the above lab result/information: [ ] NSTEMI type 1 [ ] Type 2 ID due to (specify cause ____) [ ] Non-ischemic with acute myocardial injury [x ] No additional diagnosis/Not clinically significant [ ] Other, please specify [ ] Unable to determine Reference: [employer] [place] Definition of Myocardial Infraction Elevated Cardiac Troponin >99th percentile with Troponin rise and/or fall With Acute ischemia Acute Myocardial Infarction Atherosclerosis thrombosis Type I ID Oxygen supply and demand imbalance Type II ID (Please indicate etiology) Without acute ischemia Acute Myocardial Injury MTDD
== END 2023-06-20 18:19 | disposition home or self-care (01) | DRG 305 ==
LOC: EC 17:41 → 6NMEDSUR 18:51 → OBSVTOIN 18:52 → 3SCARD 20:06
PROVIDERS: ADMIT Hospitalist; ATTEND Hospitalist
DX: I16.0 Hypertensive urgency (principal); I25.110 Atherosclerotic heart disease of native coronary artery with unstable angina pectoris; J98.11 Atelectasis; E11.51 Type 2 diabetes mellitus with diabetic peripheral angiopathy without gangrene; E11.65 Type 2 diabetes mellitus with hyperglycemia; E27.9 Disorder of adrenal gland, unspecified; I10 Essential (primary) hypertension; Z79.4 Long term (current) use of insulin; E78.5 Hyperlipidemia, unspecified; E04.1 Nontoxic single thyroid nodule; I08.1 Rheumatic disorders of both mitral and tricuspid valves; E66.9 Obesity, unspecified; Z68.29 Body mass index [BMI] 29.0-29.9, adult; F17.210 Nicotine dependence, cigarettes, uncomplicated; Z71.6 Tobacco abuse counseling; R31.9 Hematuria, unspecified; F32.A Depression, unspecified; F41.9 Anxiety disorder, unspecified; R91.1 Solitary pulmonary nodule; I25.2 Old myocardial infarction; R77.8 Other specified abnormalities of plasma proteins; Z91.199 Patient's noncompliance with other medical treatment and regimen due to unspecified reason; Z91.148 Patient's other noncompliance with medication regimen for other reason; Z79.02 Long term (current) use of antithrombotics/antiplatelets; Z79.84 Long term (current) use of oral hypoglycemic drugs; Z79.85 Long-term (current) use of injectable non-insulin antidiabetic drugs; Z79.01 Long term (current) use of anticoagulants; Z79.899 Other long term (current) drug therapy; Z95.1 Presence of aortocoronary bypass graft; Z96.611 Presence of right artificial shoulder joint; Z88.2 Allergy status to sulfonamides; Z88.8 Allergy status to other drugs, medicaments and biological substances; Z23 Encounter for immunization
CPT/HCPCS: 36415; 71046; 74018; 80048; 80053; 80061; 80076; 81001; 82009; 83036; 83735; 84132; 84145; 84484; 85025; 85027; 85610; 85730; 86140; 87040; 87636; 90677; 90686; 93005; 93306; 94760; 96365; 96366; 96375; 99285